=== PATIENT | female | born 1965 | race Caucasian/White ===

== ENCOUNTER 2017-03-25 19:00 | Emergency (ER) | payer BC, OTHER ==
[~2017-03-25] VITALS: Ht 177.8 cm; Wt 136.6 kg
[2017-03-25 19:04] VITALS: TEMP 36.6; Ht 177.8 cm; Wt 136.6 kg
[2017-03-25] MEDS ORDERED: ADENOSINE IV SOLN 3 MG/ML 2 ML VIAL ONE (19:26)
[2017-03-25] MEDS ORDERED: SODIUM CHLORIDE 0.9% 500ML 500 ML IV STA ×2 (19:27→20:43)
[2017-03-25] MEDS ORDERED: SODIUM CHLORIDE 0.9% 1000ML 1,000 ML IV STA (19:27)
[2017-03-25] MEDS ORDERED: METOPROLOL TARTRATE 1 MG/ML VIAL IV STA (19:27)
--- NOTE | 2017-03-25 19:42 | EMERGENCY ROOM VISIT NOTE ---
History Report prepared by Jeroym: Onur Barth Under the Supervision of: Dr. Frantz Quintana M.D. First contact with patient: 19:18 Chief Complaint: PALPITATIONS Stated Complaint: PALPS History of Present Illness The patient is a 51 year old female who presents to the Emergency Room with complaints of constant palpitations beginning 20 minutes ago. The patient states that she was on [place] way [place] the [place], driving, when she developed her palpitations. She reports that she drove to her work and did a standing EKG that showed SVT. The patient notes that she drove herself to the ED afterwards. She states that woke up with similar symptoms in the night several weeks ago. The patient reports that she went back to sleep, and when she woke up, the palpitations were gone. She notes that she has been under gross amounts of stress the past couple months, and she was placed on 150mg of Bupropion. The patient states that she has David thyroid disease, but denies heart or lung problems. She denies shortness of breath, chest pain, coughing, and congestion. The patient reports that she is prediabetic and is not receiving treatment. Source of History: patient Onset: 20 minutes ago Position: chest Quality: other (palpitations) Timing: constant Associated Symptoms: No cough, No chest pain, No SOB Note: Denies: congestion Review of Systems See HPI for pertinent positives & negatives. A total of 10 systems reviewed and were otherwise negative. Past Medical & Surgical Medical Problems: (1) David's thyroiditis (2) Sleep apnea Family History Patient reports no known family medical history. Social History Smoking Status: Current Every Day Smoker Marital Status: Housing Status: lives with significant other Occupation Status: employed Current/Historical Medications Scheduled Bupropion Hcl (Bupropion Hcl Xl), 150 MG PO HOLD Levothyroxine Sodium (Levothyroxine Sodium), 100 MCG PO DAILY Metoprolol Succinate (Toprol Xl), 1 TAB PO DAILY Scheduled PRN Acetaminophen (Tylenol), 1,000 MG PO Q6H PRN for Pain Allergies Coded Allergies: Doxycycline (Verified Adverse Reaction, Intermediate, Itchiness, 03/25/17) Physical Exam Vital Signs Date Time Temp Pulse Resp B/P (MAP) Pulse Ox O2 Delivery O2 Flow Rate FiO2 03/25/17 21:40 88 18 142/90 96 Room Air 03/25/17 21:18 87 18 131/78 96 Room Air 03/25/17 19:43 91 18 137/81 03/25/17 19:38 98 150/91 03/25/17 19:18 160 03/25/17 19:04 36.6 164 18 174/97 98 Room Air Physical Exam GENERAL: Patient is anxious and sometime. HEENT: No acute trauma, normocephalic atraumatic, mucous membranes moist, no nasal congestion, no scleral icterus. NECK: No stridor, no adenopathy, no meningismus, trachea is midline. LUNGS: Clear to auscultation bilaterally, no wheeze, no rhonchi, breath sounds equal. HEART: Tachycardic rate with a regular rhythm, no murmurs. ABDOMEN: Soft, nontender, bowel sounds positive, no hernias, no peritonitis. EXTREMITIES: No cyanosis or edema, full range of motion of all the joints without pain or difficulty, no signs for acute trauma. NEUROLOGIC: Oriented x 3, no acute motor or sensory deficits, no focal weakness. SKIN: No rash, no jaundice, no diaphoresis. Medical Decision & Procedures ER Provider Diagnostic Interpretation: X-ray results as stated below per interpretation by me and the radiologist: CHEST ONE VIEW PORTABLE CLINICAL HISTORY: EVALUATE ALTERED MENTAL STATUS/WEAKNESS dyspnea COMPARISON STUDY: No previous studies for comparison. FINDINGS: Mild cardia megaly. Mild prominence of the pulmonary vasculature. Diaphragms smooth. Calcific angles are sharp. IMPRESSION: Early congestive failure The above report was generated using voice recognition software. It may contain grammatical, syntax or spelling errors. Electronically signed by: Fabian Flores M.D. 03/25/2017 8:05 PM Dictated Date/Time: 03/25/2017 8:05 PM Laboratory Results 03/25/17 19:25 Red Blood Count 5.37, Mean Corpuscular Volume 86.4, Mean Corpuscular Hemoglobin 29.8, Mean Corpuscular Hemoglobin Concent 34.5, Mean Platelet Volume 9.8, Neutrophils (%) (Auto) 62.7, Lymphocytes (%) (Auto) 27.7, Monocytes (%) (Auto) 6.6, Eosinophils (%) (Auto) 2.0, Basophils (%) (Auto) 0.4, Neutrophils # (Auto) 12.50, Lymphocytes # (Auto) 5.53, Monocytes # (Auto) 1.31, Eosinophils # (Auto) 0.40, Basophils # (Auto) 0.08 03/25/17 19:25 Test 03/25/17 19:25 White Blood Count 19.93 K/uL (4.8-10.8) Red Blood Count 5.37 M/uL (4.2-5.4) Hemoglobin 16.0 g/dL (12.0-16.0) Hematocrit 46.4 % (37-47) Mean Corpuscular Volume 86.4 fL (80-100) Mean Corpuscular Hemoglobin 29.8 pg (25-34) Mean Corpuscular Hemoglobin Concent 34.5 g/dl (32-36) Platelet Count 392 K/uL (130-400) Mean Platelet Volume 9.8 fL (7.4-10.4) Neutrophils (%) (Auto) 62.7 % Lymphocytes (%) (Auto) 27.7 % Monocytes (%) (Auto) 6.6 % Eosinophils (%) (Auto) 2.0 % Basophils (%) (Auto) 0.4 % Neutrophils # (Auto) 12.50 K/uL (1.4-6.5) Lymphocytes # (Auto) 5.53 K/uL (1.2-3.4) Monocytes # (Auto) 1.31 K/uL (0.11-0.59) Eosinophils # (Auto) 0.40 K/uL (0-0.5) Basophils # (Auto) 0.08 K/uL (0-0.2) RDW Standard Deviation 47.0 fL (36.4-46.3) RDW Coefficient of Variation 14.8 % (11.5-14.5) Immature Granulocyte % (Auto) 0.6 % Immature Granulocyte # (Auto) 0.11 K/uL (0.00-0.02) Anion Gap 7.0 mmol/L (3-11) Est Creatinine Clear Calc Drug Dose 71.0 ml/min Estimated GFR () 49.9 Estimated GFR (Non- 43.1 BUN/Creatinine Ratio 15.6 (10-20) Calcium Level 9.3 mg/dl (8.5-10.1) Magnesium Level 2.1 mg/dl (1.8-2.4) Total Bilirubin 0.3 mg/dl (0.2-1) Aspartate Amino Transf (AST/SGOT) 11 U/L (15-37) Alanine Aminotransferase (ALT/SGPT) 30 U/L (12-78) Alkaline Phosphatase 101 U/L (45-117) Total Protein 8.3 gm/dl (6.4-8.2) Albumin 3.6 gm/dl (3.4-5.0) Globulin 4.7 gm/dl (2.5-4.0) Albumin/Globulin Ratio 0.8 (0.9-2) Thyroid Stimulating Hormone (TSH) 3.220 uIu/ml (0.300-4.500) Free Thyroxine 1.39 ng/dl (0.80-1.60) Laboratory results reviewed by me. Medications Administered Medications (Trade) Dose Ordered Sig/Chema Route Start Time Stop Time Status Last Admin Dose Admin Sodium Chloride 500 ml @ 999 mls/hr Q31M STAT IV 03/25/17 19:27 03/25/17 19:57 DC 03/25/17 19:37 999 MLS/HR Metoprolol Tartrate (Lopressor Iv) 5 mg NOW STAT IV 03/25/17 19:27 03/25/17 19:32 DC 03/25/17 19:38 5 MG Sodium Chloride 500 ml @ 999 mls/hr Q31M STAT IV 03/25/17 20:43 03/25/17 21:13 DC 03/25/17 21:01 999 MLS/HR Metoprolol Succinate (Toprol Xl Tab) 25 mg NOW STAT PO 03/25/17 22:02 03/25/17 22:04 DC 03/25/17 22:21 25 MG ECG Indication: palpitations Rate (beats per minute): 156 Rhythm: SVT Findings: nonspecific-ST abn (diffuse, likely rate related), no ectopy Change: Second EKG in the same visit: Normal sinus with a rate of 98, Mild nonspecific ST-change, no ectopy, no acute ischemic change. ED Course 1918: The patient was evaluated in room B11B. A complete history and physical exam was performed. 1926: Ordered Sodium Chloride 1000 ml @ 200 mls/hr IV, Metoprolol Tartrate 5mg IV, Sodium Chloride 500 ml @ 999 mls/hr IV 2033: I discussed the patient's case with Dr. Shankar, Cardiology. He suggested the patient be started on Metoprolol since this is her second episode. 2042: Ordered Sodium Chloride 500 ml @ 999 mls/hr IV 2138: I reevaluated the patient and discussed current exam findings. 2206: Reevaluated the patient. Discussed results and discharge instructions: she verbalized understanding and agreement. The patient is ready for discharge. Medical Decision The patient is a 51 year old female who presents to the ED with complaints of palpitations. Differential diagnoses considered include stress, electrolyte imbalance, medication reaction, atrial fibrillation, atrial flutter, SVT, thyroid disorder. There is a significant leukocytosis of 19,000, this could be consistent with the stress of her situation or possibly infection although she has had no infection type symptoms. There is no anemia. No significant electrolyte abnormality, kidney failure or hepatitis. The patient appears to be in a euthyroid state. EKG shows SVT with a rate in the 150s, no acute ischemic change. Chest x-ray does not show cardiomegaly. No pneumonia. The radiologist felt the film was consistent with possible CHF-the patient is not short of breath, her lungs are clear. The findings on film are likely consistent with her body habitus. The patient was aggressively managed. She was in SVT by EKG findings. I had her perform some vagal maneuvers and she did break to a sinus rhythm. Repeat EKG confirmed normal sinus rhythm, no acute ischemia. The patient received IV saline, she received IV Lopressor. I discussed her case with cardiology. She is being discharged on metoprolol and will be followed in the office. She can return here for worsening symptoms. 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 The metoprolol was given because this was very likely her second event in just a few weeks. She will follow for a repeat white blood cell count next week. Consults Time Called: 1931 Consulting Physician: Dr. Shankar, Cardiology Returned Call: [phone] I discussed the patient's case with Dr. Shankar, Cardiology. He suggested the patient be started on Metoprolol since this is her second episode. Impression Primary Impression: SVT (supraventricular tachycardia) Additional Impression: Leukocytosis Scribe Attestation The scribe's documentation has been prepared under my direction and personally reviewed by me in its entirety. I confirm that the note above accurately reflects all work, treatment, procedures, and medical decision making performed by me. Departure Information Dispostion Home / Self-Care Prescriptions Metoprolol Succinate (TOPROL XL) 25 Mg Tab 1 TAB PO DAILY for 30 Days, #30 TAB 1 Refill Prov: Frantz Quintana M.D. 03/25/17 Referrals Wei Diallo PA-C Forms HOME CARE DOCUMENTATION FORM, IMPORTANT VISIT INFORMATION Patient Instructions My [facility] Additional Instructions have a white blood cell count recheck next week--it was high today start metoprolol daily tomorrow am follow with your doctor for a cardiology referral return for return of symptoms Problem Qualifiers
[2017-03-25 19:47] LABS: HEMATOCRIT 46.4 % (37-47); MEAN CELL VOLUME 86.4 fL (80-100); MEAN CORPUSCULAR HEMOGLOBIN 29.8 pg (25-34); MEAN CORPUSCULAR HGB CONC 34.5 g/dl (32-36); MEAN PLATELET VOLUME 9.8 fL (7.4-10.4); PLATELET COUNT 392 K/uL (130-400); RED BLOOD COUNT 5.37 M/uL (4.2-5.4); WHITE BLOOD COUNT 19.93 K/uL (4.8-10.8)
[2017-03-25 20:06] LABS: BUN/CREATININE RATIO 15.6 (10-20); CALCIUM 9.3 mg/dl (8.5-10.1); CREATININE 1.4 mg/dl (0.60-1.20); MAGNESIUM 2.1 mg/dl (1.8-2.4); POTASSIUM 3.8 mmol/L (3.5-5.1)
--- NOTE | 2017-03-25 20:07 | DIAGNOSTIC IMAGING REPORT ---
CHEST ONE VIEW PORTABLE CLINICAL HISTORY: EVALUATE ALTERED MENTAL STATUS/WEAKNESS dyspnea COMPARISON STUDY: No previous studies for comparison. FINDINGS: Mild cardia megaly. Mild prominence of the pulmonary vasculature. Diaphragms smooth. Calcific angles are sharp. IMPRESSION: Early congestive failure The above report was generated using voice recognition software. It may contain grammatical, syntax or spelling errors. Electronically signed by: Fabian Flores M.D. 03/25/2017 8:05 PM Dictated Date/Time: 03/25/2017 8:05 PM
[2017-03-25 20:11] LABS: BASO % 0.4 %; BASO ABS # 0.08 K/uL (0-0.2); COMPLETE YES; IG% 0.6 %; LYMPH % 27.7 %; LYMPH ABS # 5.53 K/uL (1.2-3.4); MONO % 6.6 %; NEUT % 62.7 %
[2017-03-25 21:13] LABS: ALB/GLOB RATIO 0.8 (0.9-2)
[2017-03-25 21:36] LABS: THYROID STIMULATING HORMONE 3.22 uIu/ml (0.300-4.500)
[2017-03-25 21:40] VITALS: BP 142/90; PULSE 88; O2SAT 96
[2017-03-25] MEDS ORDERED: TYLOTC500 PO (21:47)
[2017-03-25] MEDS ORDERED: LEVO100T7 PO (21:47)
[2017-03-25] MEDS ORDERED: BUPR150T5 PO (21:49)
[2017-03-25] MEDS ORDERED: METOPROLOL SUCC 25MG EXT REL TAB PO STA (22:02)
[2017-03-25] MEDS ORDERED: METO1TAB31 PO (22:05)
== END 2017-03-25 22:22 | disposition home or self-care (01) ==
LOC: C.EDB 19:01
DX: I47.1 Supraventricular tachycardia (principal); D72.829 Elevated white blood cell count, unspecified; E06.3 Autoimmune thyroiditis; G47.30 Sleep apnea, unspecified; Z79.899 Other long term (current) drug therapy; F17.200 Nicotine dependence, unspecified, uncomplicated

== ENCOUNTER 2022-02-24 14:25 | Inpatient (IN) ==
[2022-02-24 16:20] LABS: Basophils # (auto) 0.07 K/uL (0-0.2); Basophils % (auto) 0.8 %; Eosinophils # (auto) 0.14 K/uL (0-0.50); Eosinophils % (auto) 1.7 %; Hematocrit (blood only) 35.1 % (34.1-44.9); Immature Granulocytes # (auto) 0.05 K/uL (0.00-0.02); Immature Granulocytes % (auto) 0.6 %; Lymphocytes # (auto) 1.95 K/uL (1.2-3.4); Lymphocytes % (auto) 23.3 %; Mean Corpuscular Hemoglobin 27.4 pg (25.0-34.0); Mean Corpuscular Hgb Conc 31.3 g/dL (32.0-36.0); Mean Corpuscular Volume 87.5 fL (80.0-100.0); Mean Platelet Volume 9.2 fL (9.4-12.3); Monocytes # (auto) 0.32 K/uL (0.24-0.82); Monocytes % (auto) 3.8 %; Neutrophils # (auto) 5.85 K/uL (1.4-6.5); Neutrophils % (auto) 69.8 %; Platelet Count 369 K/uL (130-400); RDW Coefficient of Variation 14.6 % (11.5-14.5); RDW Standard Deviation 46.8 fL (36.4-46.3); Red Blood Count 4.01 M/uL (3.93-5.22); White Blood Count 8.38 K/ul (4.8-10.8)
--- NOTE | 2022-02-24 16:36 | Emergency Department Note ---
Impression & Plan Atrial flutter with rapid ventricular response, Acute Lyme disease ED Provider Note INFORMANT: Patient ED PROVIDER(S): Keyur Dubose MD CHIEF COMPLAINT: Palpitations PLAN: Disposition: Admitted Condition: Good Outpatient prescription management: none Referral: None MEDICAL DECISION MAKING: Patient presented because of palpitations. Noted that she had shortness of breath however when the patient was asked to quantify she denies shortness of breath more of a feeling that she could not take a deep breath. She also noted intermittent joint and neurologic complaints. She had an episode of paroxysmal A. fib/flutter recently history of she had a fever and bull's-eye rash 3 to 4 weeks ago. ECG showed a flutter with RVR. Patient was treated with IV Cardizem x2. Rate control was achieved however she was still fluttering. Her CBC and chemistry panel were unremarkable. Lyme testing positive IgM and IgG. IV Rocephin 2 g was given. Patient was reassessed and updated. Further management in the hospital will be necessary. Consultation was made with Dr. Elliott Denny, [facility] hospitalist service. Triage Nursing notes reviewed and agree them. Vital Signs: reviewed and remarkable for tachycardia Differential diagnosis: Premature contractions, electrolyte abnormality, cardiac dysrhythmia, thyroid dysfunction, pulmonary embolism, infection, gastrointestinal, as well as other pathologies. Diagnostics interpreted by me: ECG: Twelve-lead ECG reveals atrial flutter with variable block at 121 bpm. Nonspecific interventricular conduction delay present nonspecific inferior and lateral T wave abnormality and ST segment changes. When compared to prior there is not significant change ST segments however the flutter has replaced sinus. Cardiac Monitoring: Cardiac monitoring ordered by me: The patient was placed on continuous cardiac monitoring and observed. It revealed atrial flutter at 87 bpm. Imaging studies: Chest x-ray. Findings: A chest x-ray was performed and revealed no pneumothorax, effusion, infiltrate, pulmonary edema, free air under the diaphragm, or wide mediastinum. Impression: No acute disease. HPI: The patient is a 56 year old female who presents to the Emergency Room with complaints of intermittent tachycardia. This started today and she noted her pulse was fast. The patient also notes the following associated symptoms, palpitations, intermittent numbness and tingling in fingers and lips over a month. Did note an ER visit a few weeks ago due to palpitations and was found to be in rapid a fib/flutter. Treated with cardizem and converted. Was advised against anticoagulation and aspirin. The patient has taken a full dose of metoprolol for relieving factors. Current pain is rated as o/10. Noted a bullseye rash a month ago. Pt denies LOC, headache, fevers, chills, diaphoresis, visual changes, neck pain, chest pain, , nausea, SOB, vomiting, abdominal pain, back pain, melena, hematochezia, urinary symptoms, numbness, weakness, lymphadenopathy, rash, or other complaints. ROS: See above HPI for pertinent positives & negatives. A total of 10 systems reviewed and were otherwise negative. PAST MEDICAL HISTORY:See Below , atrial flutter PAST SURGICAL HISTORY:See Below, FAMILY HISTORY:See Below SOCIAL HISTORY:See Below, quit smoking HOME MEDICATIONS:See Below ALLERGIES:See Below VITALS:See Below PHYSICAL EXAMINATION: GENERAL: Awake, alert, well-appearing, in no distress HENT: Normocephalic, atraumatic. Oropharynx unremarkable. EYES: Normal conjunctiva. Sclera non-icteric. NECK: Inspection normal. Non-tender. Supple. No nuchal rigidity. FROM. No masses. RESPIRATORY: Clear to auscultation. No wheezes. No rales. Normal respiratory effort. CARDIAC: Tachycardic rate. Irregular rhythm. No murmurs. No rubs. Extremities warm and well perfused. Pulses equal. No JVD. GI: Soft, non-distended. No tenderness to palpation. No rebound or guarding. No masses. RECTAL: Deferred. MUSCULOSKELETAL: Atraumatic. Chest examination reveals no tenderness. The back is symmetrical on inspection without obvious abnormality. There is no CVA tenderness to palpation. No joint edema. LOWER EXTREMITIES: Calves are equal size bilaterally and non-tender. No edema. No discoloration. NEURO: Normal sensorium. No sensory or motor deficits noted. SKIN: No rash or jaundice noted. CRITICAL CARE: I have personally spent greater than 35 minutes of critical care time in the direct management of this patient. This includes bedside care, interpretation of diagnostic studies, and testing, discussion with consultants, patient, and other required patient management activities. These minutes are in excess of all separately billable procedures. Keyur Dubose MD Past Med/Surg History Social History Smoking Status: Former smoker Tobacco Type: Cigarettes Preferred Language: [place] Citizen Feels Safe at Home: Yes Allergies Allergies Allergy/AdvReac Type Severity Reaction Status Date / Time doxycycline AdvReac Intermediate Itchiness Verified 02/24/22 19:14 egg AdvReac nausea & Verified 02/24/22 19:16 vomiting Raw tomatoes Allergy itchy Uncoded 02/24/22 19:16 Home Meds Home Medications Medication Instructions Recorded Confirmed ACETAMINOPHEN (TYLENOL) 1,000 mg PO Q6H PRN Pain #0 tabs 03/25/17 BUPROPION HCL (BUPROPION HCL XL) 150 mg PO HOLD #0 tabs 03/25/17 LEVOTHYROXINE SODIUM 100 mcg PO DAILY #0 tabs 03/25/17 Previous Rx's Medication Instructions Recorded METOPROLOL SUCCINATE (TOPROL XL) 1 tab PO DAILY 30 days #30 tabs 03/25/17 Results & Data (ED) Vital Signs Vital Signs - 24 hr 02/24/22 14:30 02/24/22 16:13 02/24/22 17:05 Temperature 36.9 C Temperature Source Temporal Artery Scan Pulse Rate 120 H Pulse Rate [Apical] Pulse Rhythm [Apical] Pulse Strength [Apical] Respiratory Rate 18 Respiratory Effort / Characteristics Respiratory Depth Respiratory Pattern Blood Pressure 150/90 H Blood Pressure [Left Arm] Blood Pressure Mean 110 Blood Pressure Mean [Left Arm] Blood Pressure Position [Left Arm] Pulse Oximetry 96 99 Oxygen Delivery Method Room Air Room Air Sepsis Recent Fever Within 48 Hours No Sepsis New/Unexplained Change in Mental Status No Sepsis Action Taken by Nursing No Action Required 02/24/22 17:05 02/24/22 17:47 02/24/22 18:18 Temperature Temperature Source Pulse Rate Pulse Rate [Apical] 102 H 115 H 76 Pulse Rhythm [Apical] Regular Regular Regular Pulse Strength [Apical] Normal Normal Normal Respiratory Rate 21 17 18 Respiratory Effort / Characteristics Non-Labored Non-Labored Non-Labored Respiratory Depth Normal Normal Normal Respiratory Pattern Regular Regular Blood Pressure Blood Pressure [Left Arm] 121/71 134/79 120/73 Blood Pressure Mean Blood Pressure Mean [Left Arm] 87 97 88 Blood Pressure Position [Left Arm] Lying Lying Pulse Oximetry 97 97 97 Oxygen Delivery Method Room Air Room Air Room Air Sepsis Recent Fever Within 48 Hours Sepsis New/Unexplained Change in Mental Status Sepsis Action Taken by Nursing Laboratory Data Result diagrams: 02/24/22 16:10 08/10/22 16:10 Lab Results 02/24/22 02/24/22 02/24/22 Range/Units 16:10 16:10 16:10 WBC 8.38 (4.8-10.8) K/ul RBC 4.01 (3.93-5.22) M/uL Hgb 11.0 L (12.0-16.0) g/dl Hct 35.1 (34.1-44.9) % MCV 87.5 (80.0-100.0) fL MCH 27.4 (25.0-34.0) pg MCHC 31.3 L (32.0-36.0) g/dL RDW Std Deviation 46.8 H (36.4-46.3) fL RDW Coeff of Kee 14.6 H (11.5-14.5) % Plt Count 369 (130-400) K/uL MPV 9.2 L (9.4-12.3) fL Immature Gran % (Auto) 0.6 % Neut % (Auto) 69.8 % Lymph % (Auto) 23.3 % Rogers % (Auto) 3.8 % Eos % (Auto) 1.7 % Baso % (Auto) 0.8 % Neut # (Auto) 5.85 (1.4-6.5) K/uL Lymph # (Auto) 1.95 (1.2-3.4) K/uL Rogers # (Auto) 0.32 (0.24-0.82) K/uL Eos # (Auto) 0.14 (0-0.50) K/uL Baso # (Auto) 0.07 (0-0.2) K/uL Immature Gran # (Auto) 0.05 H (0.00-0.02) K/uL ESR (0-30) mm/hr Sodium 137 (136-145) mmol/L Potassium 3.9 (3.5-5.1) mmol/L Chloride 102 (98-107) mmol/L Carbon Dioxide 29 (21-32) mmol/L Anion Gap 6 (3-11) BUN 22 (6-23) mg/dl Creatinine 1.12 (0.6-1.2) mg/dl Est Cr Clr Drug Dosing 83.3 ml/min Est GFR ( Amer) 63.1 ml/min Est GFR (Non-Af Amer) 54.5 ml/min BUN/Creatinine Ratio 19.6 (10-20) Glucose 144 H (70-99(Fasting)) mg/dl Calcium 9.2 (8.5-10.1) mg/dl Total Bilirubin 0.3 (0.2-1.0) mg/dl AST 19 (13-39) U/L ALT 25 (7-52) U/L Alkaline Phosphatase 65 (34-104) U/L C-Reactive Protein (0-0.5) mg/dl Total Protein 7.4 (6.0-8.3) gm/dl Albumin 3.7 (3.4-5.0) gm/dl Globulin 3.7 (2.5-4.0) gm/dl Albumin/Globulin Ratio 1.0 (0.9-2) TSH (0.300-4.500) uIu/ml Free T4 (0.61-1.60) ng/dl Lyme Disease IgG Ab Positive A (Negative) Lyme Disease IgM Ab Positive A (Negative) 02/24/22 02/24/22 02/24/22 Range/Units 16:10 16:10 16:10 WBC (4.8-10.8) K/ul RBC (3.93-5.22) M/uL Hgb (12.0-16.0) g/dl Hct (34.1-44.9) % MCV (80.0-100.0) fL MCH (25.0-34.0) pg MCHC (32.0-36.0) g/dL RDW Std Deviation (36.4-46.3) fL RDW Coeff of Kee (11.5-14.5) % Plt Count (130-400) K/uL MPV (9.4-12.3) fL Immature Gran % (Auto) % Neut % (Auto) % Lymph % (Auto) % Rogers % (Auto) % Eos % (Auto) % Baso % (Auto) % Neut # (Auto) (1.4-6.5) K/uL Lymph # (Auto) (1.2-3.4) K/uL Rogers # (Auto) (0.24-0.82) K/uL Eos # (Auto) (0-0.50) K/uL Baso # (Auto) (0-0.2) K/uL Immature Gran # (Auto) (0.00-0.02) K/uL ESR 77 H (0-30) mm/hr Sodium (136-145) mmol/L Potassium (3.5-5.1) mmol/L Chloride (98-107) mmol/L Carbon Dioxide (21-32) mmol/L Anion Gap (3-11) BUN (6-23) mg/dl Creatinine (0.6-1.2) mg/dl Est Cr Clr Drug Dosing ml/min Est GFR ( Amer) ml/min Est GFR (Non-Af Amer) ml/min BUN/Creatinine Ratio (10-20) Glucose (70-99(Fasting)) mg/dl Calcium (8.5-10.1) mg/dl Total Bilirubin (0.2-1.0) mg/dl AST (13-39) U/L ALT (7-52) U/L Alkaline Phosphatase (34-104) U/L C-Reactive Protein 7.05 H (0-0.5) mg/dl Total Protein (6.0-8.3) gm/dl Albumin (3.4-5.0) gm/dl Globulin (2.5-4.0) gm/dl Albumin/Globulin Ratio (0.9-2) TSH 5.805 H (0.300-4.500) uIu/ml Free T4 1.11 (0.61-1.60) ng/dl Lyme Disease IgG Ab (Negative) Lyme Disease IgM Ab (Negative) Administered Medications Discontinued Medications Diltiazem HCl (Diltiazem Hcl 5 Mg/Ml 5 Ml Vial) 10 mg IV NOW STA Stop: 02/24/22 16:43 Last Admin: 02/24/22 16:59 Dose: 10 mg Documented By: BIBI Co-signed By: SR Diltiazem HCl (Diltiazem Hcl 5 Mg/Ml 5 Ml Vial) 10 mg IV NOW STA Stop: 02/24/22 17:43 Last Admin: 02/24/22 17:48 Dose: 10 mg Documented By: BIBI Co-signed By: Discharge Plan Visit Data Chief Complaint: Neuro Symptoms/Deficit Stated Complaint: HARD TO BREATHE, NEUROLOGICAL SYMPTOMS ED Provider: Keyur Dubose Discharge Problem: Atrial flutter with rapid ventricular response, Acute Lyme disease Forms Stand Alone Forms: My [facility] Referrals Referrals: Wei Diallo PA-C [Outside Practitioners] -
[2022-02-24 16:40] LABS: Albumin Level 3.7 gm/dl (3.4-5.0); BUN Creatinine Ratio 19.6 (10-20); Bilirubin,Total 0.3 mg/dl (0.2-1.0); Calcium 9.2 mg/dl (8.5-10.1); Creatinine Clr Calc Pharmacy 83.3 ml/min; Est GFR (African American) 63.1 ml/min; Est GFR (Non-African American) 54.5 ml/min; Globulin 3.7 gm/dl (2.5-4.0); Potassium 3.9 mmol/L (3.5-5.1); Total Protein 7.4 gm/dl (6.0-8.3)
[2022-02-24] MEDS ORDERED: dilTIAZem HCl 5 MG/ML 5 ML VIAL IV STA ×2 (16:42→17:42)
[2022-02-24 17:09] LABS: Thyroid Stimulating Hormone 5.805 uIu/ml (0.300-4.500)
[2022-02-24 17:48] LABS: T4 Free Thyroxine 1.11 ng/dl (0.61-1.60)
[2022-02-24 18:47] LABS: Lyme Ab IgG w/WB Rflx Positive (Negative); Lyme Ab IgM w/WB Rflx Positive (Negative)
[2022-02-24] MEDS ORDERED: cefTRIAXone SODIUM 2,000 MG/70 ML BAG IV STA (18:50)
[2022-02-24] MEDS ORDERED: POTASSIUM CHLORIDE CRTAB 20 MEQ TABCR PO STA (19:16)
--- NOTE | 2022-02-24 20:22 | History & Physical Report ---
Date of Service February 24, 2022 Assessment & Plan (1) Atrial flutter with rapid ventricular response: Plan: hx PAF/PSVT Possible cardiac Lyme Anxiety contributory Possible INSERTER OPERATOR Lyme DM2 diet-controlled, suboptimal control as of recent hemoglobin A1c of 8.19 January 2022 hyperlipidemia, currently not on medications as per patient preference hypothyroidism, TSH slight elevated New onset anemia, patient denies overt source of bleed CAMERON on CPAP past tobacco abuse PCU Titrate home beta-antony carefully in light of bradycardic episodes at home TTE, cardiology consult Re: New onset atrial flutter IV heparin for thromboembolic prophylaxis Ceftriaxone, ID consult for disseminated Lyme (cardiac and INSERTER OPERATOR manifestations) Anxiolytic as needed Basal insulin, ISS BG goal 1 10-1 40, carb count coverage DVT prophylaxis IV heparin Full code Patient requesting to be discharged tomorrow if possible due to important work commitment on 02/26/2022. Text document was generated using [employer] voice recognition software. It may contain grammatical or spelling errors. Kindly contact undersigned for clarification of any documentation item in question. History of Present Illness Chief Complaint: Breathing not usual Primary Care Provider: Trina Resendiz MD History obtained from patient and records. Medical history significant for PAF, PSVT, DM2 diet-controlled, hyperlipidemia, hypothyroidism, CAMERON on CPAP, past tobacco abuse. 6 weeks ago patient noted a bull's-eye lesion on the left arm with fever. Possible tick bite. Outpatient Lyme screen negative. Outpatient Keflex Rx for LUE cellulitis from PCPs office. Patient later on noted transient truncal lesions. 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 Persistent fatigue last 6 weeks. 2 weeks ago, patient noted palpitations. Patient consulted [facility] ER. A. fib resolved with diltiazem as per documentation. Patient discharged on Toprol-XL 25 mg daily. Heart rate as low as 40 at home from time to time. PCP decreased Toprol-XL dose to 12.5 mg daily on follow-up visit. Patient later on noted transient neurologic symptoms over the last few weeks. Lip numbness, tingling finger numbness/sensation, RLE numbness compared to LLE as per patient. No headache symptoms. Patient breathing not usual at work today. Denies chest pain. Not actually short of breath as per patient. Leg swelling actually better than a few weeks ago. No unusual cough symptoms. Patient noted to be in atrial flutter upon arrival at the ER. IV Cardizem administered at the ER. Ceftriaxone administered for Lyme disease. 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 Allergies Allergy/AdvReac Type Severity Reaction Status Date / Time tomato Allergy itching Verified 02/24/22 22:17 doxycycline AdvReac Intermediate Itchiness Verified 02/24/22 19:14 egg AdvReac nausea & Verified 02/24/22 19:16 vomiting Home Medications Medication Instructions Recorded Confirmed Type Magnesium Malate Tab 425 mg PO DAILY 02/24/22 02/24/22 History acetaminophen 500 mg tablet 500 - 1,000 mg PO Q6H PRN Pain 02/24/22 02/24/22 History (Tylenol Extra Strength) cholecalciferol (vitamin D3) 125 125 mcg PO DAILY 02/24/22 02/24/22 History mcg (5,000 unit) tablet (Vitamin D3) levothyroxine 137 mcg tablet 137 mcg PO DAILY 02/24/22 02/24/22 History (Euthyrox) metoprolol succinate 25 mg 25 mg PO DAILY 02/24/22 02/24/22 History tablet,extended release 24 hr vitamin B complex 1 tab PO DAILY 02/24/22 02/24/22 History Past Med/Surg History Social History Smoking Status: Former smoker Tobacco Type: Cigarettes Smoking End Date: January 29; Hx Alcohol Use: Yes Hx Substance Use: No Preferred Language: Irish Communication Ability: Effective Newswriter Required: No Beliefs That Will Affect Care: None Current Living Situation: Family Feels Safe at Home: No Assistive Devices: CPAP and Glasses Review of Systems Review of Systems: As per HPI, all other systems reviewed and negative Physical Exam Physical Exam: GENERAL: Comfortable, anxious, morbidly obese, tearful, no respiratory distress SKIN: Normal color, warm HEENT: [place] palpebral conjunctivae, no ptosis, moist buccal mucosa NECK : Supple, short neck, no tenderness CHEST : CTA, no tenderness HEART : Tachycardic, no obvious murmurs ABDOMEN: Some distention, nontender EXTREMITIES : Minimal LE swelling, no LE tenderness, no other conspicuous deformities noted NEUROLOGIC : Coherent, no facial asymmetry, no other gross focality Results & Data Results & Data ([facility]) Vital Signs (Past 12 Hours) Vital Signs Temp Pulse Pulse Resp BP BP Pulse Ox 02/24/22 18:18 76 18 120/73 97 02/24/22 17:47 115 H 17 134/79 97 02/24/22 17:05 102 H 21 121/71 97 02/24/22 17:05 99 02/24/22 16:13 02/24/22 14:30 36.9 C 120 H 18 150/90 H 96 O2 Del Method 02/24/22 18:18 Room Air 02/24/22 17:47 Room Air 02/24/22 17:05 Room Air 02/24/22 17:05 Room Air 02/24/22 16:13 Room Air 02/24/22 14:30 Laboratory Results Laboratory Results WBC 8.38 K/ul (4.8-10.8) 02/24/22 16:10 RBC 4.01 M/uL (3.93-5.22) 02/24/22 16:10 Hgb 11.0 g/dl (12.0-16.0) L 02/24/22 16:10 Hct 35.1 % (34.1-44.9) 02/24/22 16:10 MCV 87.5 fL (80.0-100.0) 02/24/22 16:10 MCH 27.4 pg (25.0-34.0) 02/24/22 16:10 MCHC 31.3 g/dL (32.0-36.0) L 02/24/22 16:10 RDW Std Deviation 46.8 fL (36.4-46.3) H 02/24/22 16:10 RDW Coeff of Kee 14.6 % (11.5-14.5) H 02/24/22 16:10 Plt Count 369 K/uL (130-400) 02/24/22 16:10 MPV 9.2 fL (9.4-12.3) L 02/24/22 16:10 Immature Gran % (Auto) 0.6 % 02/24/22 16:10 Neut % (Auto) 69.8 % 02/24/22 16:10 Lymph % (Auto) 23.3 % 02/24/22 16:10 Kay % (Auto) 3.8 % 02/24/22 16:10 Eos % (Auto) 1.7 % 02/24/22 16:10 Baso % (Auto) 0.8 % 02/24/22 16:10 Neut # (Auto) 5.85 K/uL (1.4-6.5) 02/24/22 16:10 Lymph # (Auto) 1.95 K/uL (1.2-3.4) 02/24/22 16:10 Kay # (Auto) 0.32 K/uL (0.24-0.82) 02/24/22 16:10 Eos # (Auto) 0.14 K/uL (0-0.50) 02/24/22 16:10 Baso # (Auto) 0.07 K/uL (0-0.2) 02/24/22 16:10 Immature Gran # (Auto) 0.05 K/uL (0.00-0.02) H 02/24/22 16:10 ESR 77 mm/hr (0-30) H 02/24/22 16:10 Sodium 137 mmol/L (136-145) 02/24/22 16:10 Potassium 3.9 mmol/L (3.5-5.1) 02/24/22 16:10 Chloride 102 mmol/L (98-107) 02/24/22 16:10 Carbon Dioxide 29 mmol/L (21-32) 02/24/22 16:10 Anion Gap 6 (3-11) 02/24/22 16:10 BUN 22 mg/dl (6-23) 02/24/22 16:10 Creatinine 1.12 mg/dl (0.6-1.2) 02/24/22 16:10 Est Cr Clr Drug Dosing 83.3 ml/min 02/24/22 16:10 Est GFR ( Amer) 63.1 ml/min 02/24/22 16:10 Est GFR (Non-Af Amer) 54.5 ml/min 02/24/22 16:10 BUN/Creatinine Ratio 19.6 (10-20) 02/24/22 16:10 Glucose 144 mg/dl (70-99(Fasting)) H 02/24/22 16:10 Calcium 9.2 mg/dl (8.5-10.1) 02/24/22 16:10 Total Bilirubin 0.3 mg/dl (0.2-1.0) 02/24/22 16:10 AST 19 U/L (13-39) 02/24/22 16:10 ALT 25 U/L (7-52) 02/24/22 16:10 Alkaline Phosphatase 65 U/L (34-104) 02/24/22 16:10 C-Reactive Protein 7.05 mg/dl (0-0.5) H 02/24/22 16:10 Total Protein 7.4 gm/dl (6.0-8.3) 02/24/22 16:10 Albumin 3.7 gm/dl (3.4-5.0) 02/24/22 16:10 Globulin 3.7 gm/dl (2.5-4.0) 02/24/22 16:10 Albumin/Globulin Ratio 1.0 (0.9-2) 02/24/22 16:10 TSH 5.805 uIu/ml (0.300-4.500) H 02/24/22 16:10 Free T4 1.11 ng/dl (0.61-1.60) 02/24/22 16:10 Lyme Disease IgG Ab Positive (Negative) A 02/24/22 16:10 Lyme Disease IgM Ab Positive (Negative) A 02/24/22 16:10 SARS-CoV-2, RNA, NAAT NEGATIVE (NEGATIVE) 02/24/22 19:[address] head initial read: No intracranial hemorrhage, mass-effect or midline shift. There is no abnormal extra axial fluid collection. No evidence of acute infarct. Mild periventricular white matter hypodensities are most consistent with chronic microangiopathy. The visualized paranasal sinuses and mastoid air cells are clear. No fracture. EKG as per my interpretation: Rate 120, atrial flutter, normal axis, T wave abnormalities lateral leads
[2022-02-24 20:31] LABS: Partial Thromboplastin Time 26.8 Seconds (21.0-31.0)
[2022-02-24 20:40] LABS: Magnesium 2.1 mg/dl (1.7-2.4)
[2022-02-24] MEDS ORDERED: METOPROLOL SUCC 25MG EXT REL TAB PO STA (20:45)
[2022-02-24 20:47] LABS: Troponin I High Sensitivity 219.3 pg/ml (0-14)
[2022-02-24] MEDS ORDERED: Heparin IV Adult Wt-Based Low-Dose *NO* Bolus Protocol IV SCH (21:30)
[2022-02-24] MEDS ORDERED: GLUCOSE 10 TAB/TUBE PO PRN (22:08)
[2022-02-24] MEDS ORDERED: GLUCOSE 40% GEL 15 GM TUBE PO PRN (22:08)
[2022-02-24] MEDS ORDERED: ACETAMINOPHEN 325 MG TAB PO PRN (22:08)
[2022-02-24] MEDS ORDERED: DEXTROSE 50% 50 ML SYRINGE IV PRN (22:08)
[2022-02-24] MEDS ORDERED: CARBOHYDRATES FOR HYPOGLYCEMIA PO PRN (22:08)
[2022-02-24] MEDS ORDERED: traMADol HCL 50 MG TABLET PO PRN (22:08)
[2022-02-24] MEDS ORDERED: GLUCAGON FOR INJ 1 MG VIAL SQ PRN (22:08)
[2022-02-24] MEDS ORDERED: PROMETHAZINE HCL 12.5 MG in SODIUM CHLORIDE 0.9% 50 ML IV PRN (22:08)
[2022-02-24] MEDS ORDERED: LORazepam 0.5 MG TAB PO PRN (22:08)
[2022-02-24] MEDS: INSULIN ASPART PER UNIT SC SCH (22:45)
[2022-02-24] MEDS: LANTUS PER UNIT CHARGE SQ SCH (22:53)
[2022-02-24] MEDS: HEPARIN SODIUM/DEXTROSE 25,000 UNITS/500 ML BAG IV SCH (22:54)
[2022-02-25 05:15] LABS: Basophils # (auto) 0.08 K/uL (0-0.2); Basophils % (auto) 0.9 %; Eosinophils # (auto) 0.16 K/uL (0-0.50); Eosinophils % (auto) 1.7 %; Hematocrit (blood only) 37.7 % (34.1-44.9); Hemoglobin 11.6 g/dl (12.0-16.0); Immature Granulocytes # (auto) 0.05 K/uL (0.00-0.02); Immature Granulocytes % (auto) 0.5 %; Lymphocytes # (auto) 2.51 K/uL (1.2-3.4); Lymphocytes % (auto) 27.2 %; Mean Corpuscular Hemoglobin 26.9 pg (25.0-34.0); Mean Corpuscular Hgb Conc 30.8 g/dL (32.0-36.0); Mean Corpuscular Volume 87.3 fL (80.0-100.0); Mean Platelet Volume 9.4 fL (9.4-12.3); Monocytes # (auto) 0.35 K/uL (0.24-0.82); Monocytes % (auto) 3.8 %; Neutrophils # (auto) 6.09 K/uL (1.4-6.5); Neutrophils % (auto) 65.9 %; Platelet Count 402 K/uL (130-400); RDW Coefficient of Variation 14.5 % (11.5-14.5); RDW Standard Deviation 46.5 fL (36.4-46.3); Red Blood Count 4.32 M/uL (3.93-5.22); Reticulocyte % 1.9 % (0.5-2.0); Reticulocytes # 0.08 10^6/uL (0.02-0.10); White Blood Count 9.24 K/ul (4.8-10.8)
[2022-02-25 05:30] LABS: Partial Thromboplastin Time 26.8 Seconds (21.0-31.0)
[2022-02-25 05:42] LABS: Creatinine Clr Calc Pharmacy 113.7 ml/min; Est GFR (African American) 92.1 ml/min; Est GFR (Non-African American) 79.4 ml/min; Magnesium 2.1 mg/dl (1.7-2.4); Potassium 4.2 mmol/L (3.5-5.1)
[2022-02-25 06:05] LABS: Ferritin 42.4 ng/ml (8-388)
[2022-02-25 06:20] LABS: Folate (Folic Acid) 11.45 ng/ml (>5.38)
[2022-02-25] MEDS ORDERED: HEPARIN SOD (PORCINE) 1000 UNIT/ML ONE (06:21)
--- NOTE | 2022-02-25 08:22 | CT Scan Report ---
CT OF THE HEAD WITHOUT CONTRAST CLINICAL HISTORY: Numbness. COMPARISON STUDY: No previous studies for comparison. CT DOSE: 537.48 mGy.cm TECHNIQUE: Helical axial images of the head were obtained without IV contrast. Automated exposure con trol was utilized for the study. A dose lowering technique was utilized adhering to the principles o f ALARA. FINDINGS: No acute intracranial hemorrhage, midline shift or mass effect is present. The ventricular system is unremarkable. The basal cisterns are patent. No extra-axial collections are present. There are no findings to suggest acute dural sinus thrombosis or acute territorial infarct. No significant calvarial abnormalities are present. Visualized portions of the sinuses and mastoid air cells are cielo ar. IMPRESSION: No acute intracranial findings. ACT 112: Negative or not required by law. Electronically signed by: Dakota Brown M.D. 02/25/2022 8:20 AM
[2022-02-25] MEDS: INSULIN ASPART PER UNIT SC SCH ×4 (08:52→20:42)
[2022-02-25] MEDS ORDERED: METOPROLOL SUCC 25MG EXT REL TAB PO SCH (09:00)
[2022-02-25] MEDS ORDERED: MAGNESIUM MALATE PO SCH (09:00)
[2022-02-25] MEDS ORDERED: VITAMIN B COMPLEX TAB PO SCH (09:00)
--- NOTE | 2022-02-25 09:41 | Hospitalist Progress Note ---
Date of Service February 25, 2022 Assessment & Plan (1) Atrial flutter with rapid ventricular response: Plan: Recently seen at outpatient ER with this as a new finding. Placed on metoprolol which has been continued. Cont heparin drip with plans to transition to NOAC. Normal recent TSH. Possible Lyme infection contributing? (2) Elevated troponin: Plan: Echo without abnormal wall motion and normal V function. No concern for ACS and she is doing well. (3) Lyme disease: Plan: Ceftriaxone, ID consult for disseminated Lyme (cardiac and MANHOLE STRIPPER manifestations). Unable to tolerate doxycycline in the past. Plan DM2 diet-controlled, suboptimal control as of recent hemoglobin A1c of 8.19 January 2022 hyperlipidemia, currently not on medications as per patient preference hypothyroidism, TSH slight elevated, stable. Cont synthroid at home dose New onset anemia, patient denies overt source of bleed, had recently quit smoking two months ago. Previously had some elevated H/H likely related to smoking. CAMERON on CPAP past tobacco abuse Heparin for DVT proph Full Code Dispo-pending improvement in heart rate and antibiotic recommendations with stable improvement in clinical symptoms. To home at discharge. DO Saundra Correa Hospitalist Admission and Anticipated Discharge Date Admission Date: February 24, 2022 Subjective 56 yo F presents with palpitations and found to be again in atrial flutter with rapid ventricular response. Treated with diltiazem with slowing of rate. Placed on Toprol XL 50mg PO BID and heparin for stroke prophylaxis. 6 weeks ago patient noted a bull's-eye lesion on the left arm with fever. Possible tick bite. Outpatient Lyme screen negative. Outpatient Keflex Rx for LUE cellulitis from PCPs office. Patient later on noted transient truncal lesions. 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 Persistent fatigue last 6 weeks. 2 weeks ago, patient noted palpitations. Patient consulted [facility] ER. A. fib resolved with diltiazem as per documentation. Patient discharged on Toprol-XL 25 mg daily. Heart rate as low as 40 at home from time to time. PCP decreased Toprol-XL dose to 12.5 mg daily on follow-up visit. Patient later on noted transient neurologic symptoms over the last few weeks. Lip numbness, tingling finger numbness/sensation, RLE numbness compared to LLE as per patient. No headache symptoms. Patient breathing not usual at work today. Denies chest pain. Not actually short of breath as per patient. Leg swelling actually better than a few weeks ago. No unusual cough symptoms. Patient noted to be in atrial flutter upon arrival at the ER. IV Cardizem administered at the ER. Ceftriaxone administered for Lyme disease. This morning she is feeling less neurologic symptoms and is doing better overall. She is frustrated with the delay in diagnosis but is otherwise doing well Review of Systems Review of Systems: all systems were reviewed and negative except as indicated above. Physical Exam Physical Exam: CONSTITUTIONAL: WNWD, vitals as above, generally well- appearing, NAD EYES: normal conjunctivae, no scleral icterus ENT: external ear and nose normal, MMM NECK: trachea midline RESPIRATORY: clear to auscultation bilaterally, no crackles, rales or wheezes, normal respiratory effort CARDIOVASCULAR: irregular rate and irregular rhythm, S1 and 2 heard without mu rmurs, gallops or rubs, no JVD, no peripheral edema CHEST: inspection of chest was normal GASTROINTESTINAL: soft, nontender, ND, no guarding MUSCULOSKELETAL: strength 5/5 throughout, head is normocephalic and atraumatic, neck supple, normal palpation of chest wall without tenderness SKIN: warm and dry NEUROLOGIC: CN 2-12 grossly intact, no sensory deficit, normal cognition, normal speech, no tremor PSYCHIATRIC: alert cooperative and oriented to person, place and time. Euthymic mood, makes good eye contact, language grossly intact, recent and remote memory grossly intact. Results & Data Results & Data ([facility]) Vital Signs (Past 12 Hours) Vital Signs Temp Pulse Pulse Resp BP BP Pulse Ox 02/25/22 08:32 36.9 C 103 H 16 132/101 H 97 02/25/22 07:13 02/25/22 07:13 36.9 C 117 H 20 129/84 97 02/25/22 04:27 116 H 14 93 02/25/22 03:30 117 H 13 93 02/25/22 03:20 94 H 16 94 02/25/22 03:10 108 H 14 94 02/25/22 03:00 108 H 21 94 02/25/22 02:50 108 H 16 94 02/25/22 02:40 108 H 16 94 02/25/22 02:30 117 H 15 93 02/25/22 02:20 117 H 18 94 02/25/22 02:10 116 H 22 100 02/25/22 02:00 117 H 13 93 02/25/22 01:59 18 02/25/22 01:50 117 H 27 H 95 02/25/22 01:40 93 H 27 H 96 02/25/22 01:30 100 H 24 96 02/25/22 01:20 108 H 23 96 02/25/22 01:10 108 H 3 L 95 02/25/22 01:00 117 H 6 L 95 02/25/22 00:50 117 H 10 L 94 02/25/22 00:40 108 H 24 95 02/25/22 00:30 118 H 25 H 95 02/25/22 00:20 108 H 30 H 95 02/25/22 00:10 119 H 11 L 02/25/22 00:00 119 H 14 02/24/22 23:50 108 H 6 L 02/24/22 23:40 110 H 14 02/24/22 23:30 120 H 20 02/24/22 23:20 124 H 16 02/24/22 23:14 124 H 15 02/24/22 22:50 119 H 18 97 02/24/22 22:40 118 H 19 95 02/24/22 22:30 118 H 22 95 02/24/22 22:30 125/75 02/24/22 22:20 119 H 16 97 02/24/22 22:10 120 H 21 97 02/24/22 22:00 111 H 25 H 02/24/22 22:00 139/84 02/24/22 21:50 121 H 13 99 02/24/22 21:40 121 H 16 02/24/22 22:08 Pulse Ox O2 Del Method O2 Del Method FiO2 02/25/22 08:32 Room Air 02/25/22 07:13 Room Air 02/25/22 07:13 02/25/22 04:27 21 02/25/22 03:30 02/25/22 03:20 02/25/22 03:10 02/25/22 03:00 02/25/22 02:50 02/25/22 02:40 02/25/22 02:30 02/25/22 02:20 02/25/22 02:10 02/25/22 02:00 02/25/22 01:59 Nasal CPAP 02/25/22 01:50 02/25/22 01:40 02/25/22 01:30 02/25/22 01:20 02/25/22 01:10 02/25/22 01:00 02/25/22 00:50 02/25/22 00:40 02/25/22 00:30 02/25/22 00:20 02/25/22 00:10 02/25/22 00:00 02/24/22 23:50 02/24/22 23:40 02/24/22 23:30 02/24/22 23:20 02/24/22 23:14 02/24/22 22:50 02/24/22 22:40 02/24/22 22:30 02/24/22 22:30 02/24/22 22:20 02/24/22 22:10 02/24/22 22:00 02/24/22 22:00 02/24/22 21:50 02/24/22 21:40 02/24/22 22:08 97 Room Air Laboratory Results Short CBC 02/25/22 Range/Units 04:42 WBC 9.24 (4.8-10.8) K/ul Hgb 11.6 L (12.0-16.0) g/dl Hct 37.7 (34.1-44.9) % Plt Count 402 H (130-400) K/uL BMP 02/25/22 04:42 Sodium 137 Potassium 4.2 Chloride 103 Carbon Dioxide 27 BUN 18 Creatinine 0.82 D Glucose 149 H Calcium 9.0 Diagnostic Findings Chest X-Ray 02/25/22 10:48 XR chest 1V portable CLINICAL HISTORY: sob. COMPARISON STUDY: 03/25/2017 TECHNIQUE: 1 view of the chest FINDINGS: Single frontal view of the chest demonstrates the heart size to be at the upper limits of normal to mildly enlarged. The lungs are clear of alveolar opacities. There is no evidence for pleural effusion. There is no evidence for vascular congestion. There is no acute osseous pathology. IMPRESSION: 1. No acute cardiopulmonary disease. ACT 112: Negative or not required by law. Electronically signed by: Yazan Pizarro M.D. 02/25/2022 1:05 PM Medications Administered Current Inpatient Medications Acetaminophen (Acetaminophen 325 Mg Tab) 650 mg PO Q4H PRN PRN Reason: Pain or Fever Stop: 03/26/22 22:07 Dextrose (Dextrose 50% 50 Ml Syringe) 25 - 50 ml IV UD PRN; Protocol PRN Reason: Hypoglycemia Protocol Stop: 03/26/22 22:07 Glucagon (Glucagon For Inj 1 Mg Vial) 1 mg SQ UD PRN; Protocol PRN Reason: Hypoglycemia Protocol Stop: 03/26/22 22:07 Glucose (Glucose 40% Gel 15 Gm Tube) 15 - 30 gm PO UD PRN; Protocol PRN Reason: Hypoglycemia Protocol Stop: 03/26/22 22:07 Glucose (Glucose 10 Tab/Tube) 4 - 8 tab PO UD PRN; Protocol PRN Reason: Hypoglycemia Treatment Stop: 03/26/22 22:07 Heparin Sodium/Dextrose (Heparin Sodium/Dextrose) 25,000 units in 500 mls @ 32 mls/hr IV .[id number] [facility]; Protocol Stop: 03/26/22 21:29 Last Titration: 02/25/22 18:59 Dose: 1,600 units/hr, 32 mls/hr Promethazine HCl 12.5 mg/ (Sodium Chloride) 50.5 mls @ 202 mls/hr IV Q6H PRN PRN Reason: Nausea And Vomiting Stop: 03/26/22 22:07 Ceftriaxone Sodium 2,000 mg/ (Dextrose) 70 mls @ 140 mls/hr IV Q24H [facility]; Protocol Stop: 03/07/22 19:59 Last Admin: 02/25/22 20:22 Dose: 140 mls/hr Insulin Aspart (Insulin Aspart Per Unit) 0 units SC [facility] Stop: 03/26/22 22:07 Last Admin: 02/25/22 17:24 Dose: Not Given Insulin Glargine (Lantus Per Unit Charge) 5 units SQ [facility] Stop: 03/26/22 22:07 Last Admin: 02/24/22 22:53 Dose: 5 units Levothyroxine Sodium (Levothyroxine Sodium 137 Mcg Tablet) 137 mcg PO DAILYBB [facility] Stop: 03/27/22 06:29 Last Admin: 02/25/22 10:02 Dose: 137 mcg Lorazepam (Lorazepam 0.5 Mg Tab) 0.5 mg PO TID PRN PRN Reason: Anxiety Stop: 03/26/22 22:07 Magnesium Oxide (Magnesium Oxide 400 Mg Tab) 400 mg PO [facility] Stop: 03/27/22 20:59 Last Admin: 02/25/22 20:06 Dose: 400 mg Metoprolol Succinate (Metoprolol Succ 50mg Ext Rel Tab) 50 mg PO BID [facility] Stop: 03/27/22 06:44 Last Admin: 02/25/22 20:07 Dose: 50 mg Miscellaneous (Carbohydrates For Hypoglycemia ) 15 - 30 gm PO UD PRN PRN Reason: Hypoglycemia Protocol Stop: 03/26/22 22:07 Tramadol HCl (Tramadol Hcl 50 Mg Tablet) 25 - 50 mg PO Q4H PRN PRN Reason: Pain Stop: 03/26/22 22:07 Vitamin B Complex (Vitamin B Complex Tab) 1 tab PO HS [facility] Stop: 03/27/22 20:59 Last Admin: 02/25/22 20:07 Dose: 1 tab
--- NOTE | 2022-02-25 09:49 | Cardiology Consultation ---
Date of Consultation February 25, 2022 Assessment & Plan (1) Atrial flutter with rapid ventricular response: (2) Lyme disease: (3) Elevated troponin: Plan Lyme disease with possible neurological manifestations, ? carditis (mildly elevated high sensitivity troponin I, atrial flutter), and ? acrodermatitis atrophicans. No cardiomyopathy or congestive heart failure. Agree with utilization of Ceftriaxone 2 g IV, likely for 14 to 28 days (Infectious Disease consultation pending). Patient notably previously unable to tolerate doxycycline. Atrial flutter with a rapid ventricular response. ? Incidental finding versus secondary to mild myopericarditis. LV function low normal. No pericardial fluid on resting echocardiography. Agree with cautious titration of metoprolol for rate control. Continue IV heparin. Eventual transition to a NOAC for at least short term (4-6 weeks) recommended, as discussed. Elevated high sensitivity troponin I. EKG without acute changes. Patient without overt ACS symptoms. Echocardiogram this morning reveals normal LV systolic function without wall motion abnormality. Patient does have multiple risk factors. Down the road, once all of the above has been corrected, would consider outpatient two day Lexiscan nuclear stress testing. Further recommendations pending the above, evaluation by Dr. Shankar, patient's ongoing hospitalization. Supervising Physician Co-Signing Physician Notes Supervising Physician Attestation: I have personally performed a history and physical examination on the patient. I agree with the physician senior court office assistant's findings and plan as documented with the following additions. Subjective: Patient without acute distress, ongoing atrial fibrillation/flutter with mildly elevated ventricular rate noted in the low 100s. Exam: Cardiovascular tachycardic, no murmurs, no edema Data: Lyme IgG, IgM screen positive Assessment and Plan: Atrial fibrillation/atrial flutter with elevated ventricular rate, associated symptoms of difficulty catching breath Low normal LVEF, 50 to 55% Apparent acute Lyme, several weeks removed from what was in retrospect and erythema migrans rash -Continue metoprolol for rate control, heparin for stroke prophylaxis until her course is more clear. -Agree with DECLAN Shankar DO History of Present Illness Reason for Consultation: Atrial flutter Requesting Physician: Eduin Attending Physician: Adam History of Present Illness Ms. 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 Denny, evaluation of atrial flutter. At the end of December the patient developed a fever up to 102.7 F. Two days later she awoke with some left axilla tenderness and noticed a bull's-eye rash in the left anterior axilla and left upper chest area. She was evaluated at [facility] on January 14, 2022 and was prescribed cephalexin 500 mg twice per day x10 days for acute pharyngitis and cellulitis of the left axilla. She was not prescribed doxycycline due to past intolerance, previously trying doxycycline x2 for rosacea, developing symptomatic PSVT on both occasions (first episode converted following vagal maneuvers, second required adenosine). Lyme testing was obtained and returned negative. Thereafter she developed what she describes as random migrating neurological symptoms -transient intermittent numbness and tingling in the left side of the lips and transient myalgias and arthralgias (jaw discomfort, transient right elbow pain, left elbow pain, shoulder or neck discomfort, knee pain). She notes that her skin was less sensitive. Patient was seen on the weekend clinic, January 16, 2022, with multiple round red circles all over her body felt to represent pityriasis rosea or some other viral exanthem. On February 08, 2022 the patient presented to the ER due to significant palpitations. EKG at that time revealed atrial fibrillation/flutter. Patient notes receiving 10 mg of IV Cardizem with spontaneous conversion to sinus bradycardia. On discharge from the ER the patient was advised to decrease her dose of metoprolol from 25 mg/day to 12.5 mg/day due to bradycardia in the 40s. She was not discharged on aspirin or anticoagulation. Since that time she has continued to feel fatigued. She denies exertional chest pain or discomfort. She notes presenting to the ER on February 24, 2022 due to a change in her breathing, not particularly short of breath. No pleuritic chest pain. No cough, chest congestion, orthopnea, PND, or increased peripheral edema. Patient notes history of sleep apnea, faithfully utilizing CPAP at 9 to 12 cm of water. No dizziness or lightheadedness. No near syncope or syncope. Past Medical and Surgical History SVT Dyslipidemia Hypothyroidism Type 2 diabetes mellitus Obesity Obstructive sleep apnea, CPAP therapy Adjustment disorder with depressed mood Anemia History of skin cancer, basal cell External hemorrhoids Vitamin D deficiency Status post laparotomy D&C Cystocele repair Total abdominal hysterectomy with LSO and right cystectomy Family History: Father has chronic atrial fibrillation, significant sleep apnea, untreated. Mother approximately 3 years ago with a ruptured cerebral AVM. Brother is alive without known cardiac issues. Social History. Patient is a recently reformed smoker. She started smoking at the age of 18, quitting for 10 years, resuming at the age of 39. She quit smoking on January 29, 2022. Social alcohol only. No illegal drug use. Patient is a Respiratory Therapist at [employer] Complete review of systems is otherwise as stated above, negative, noncontributory. Allergies Allergy/AdvReac Type Severity Reaction Status Date / Time tomato Allergy itching Verified 02/24/22 22:17 doxycycline AdvReac Intermediate Itchiness Verified 02/24/22 19:14 egg AdvReac nausea & Verified 02/24/22 19:16 vomiting Home Medications Medication Instructions Recorded Confirmed Type Magnesium Malate Tab 425 mg PO DAILY 02/24/22 02/24/22 History acetaminophen 500 mg tablet 500 - 1,000 mg PO Q6H PRN Pain 02/24/22 02/24/22 History (Tylenol Extra Strength) cholecalciferol (vitamin D3) 125 125 mcg PO DAILY 02/24/22 02/24/22 History mcg (5,000 unit) tablet (Vitamin D3) levothyroxine 137 mcg tablet 137 mcg PO DAILY 02/24/22 02/24/22 History (Euthyrox) metoprolol succinate 25 mg 25 mg PO DAILY 02/24/22 02/24/22 History tablet,extended release 24 hr vitamin B complex 1 tab PO DAILY 02/24/22 02/24/22 History Patient History Social History Smoking Status: Former smoker Tobacco Type: Cigarettes Smoking End Date: January 29; Hx Alcohol Use: Yes Hx Substance Use: No Preferred Language: Slovak Communication Ability: Effective Security Director Required: No Beliefs That Will Affect Care: None Current Living Situation: Family Feels Safe at Home: No Assistive Devices: CPAP and Glasses Physical Exam Physical Exam: General: A&Ox3. NAD. HENT: Normocephalic. Atraumatic. Eyes: PER. Conjunctiva pink, sclera clear. Neck: No carotid bruits. No JVD. Heart: Irregularly irregular at 110 bpm. No murmur. No rub. Lungs: Diminished at the bases however clear to auscultation. Abdomen: +BS. Soft. Nontender. No masses or organomegaly. Extremities: Stasis changes. No clubbing. No cyanosis. Limited neurological examination is without focal deficits. Pulses: Posterior tibial=2/4. Results & Data ([facility]) Vital Signs (Past 12 Hours) Vital Signs Temp Pulse Pulse Resp BP BP Pulse Ox 02/25/22 08:32 36.9 C 103 H 16 132/101 H 97 02/25/22 07:13 02/25/22 07:13 36.9 C 117 H 20 129/84 97 02/25/22 04:27 116 H 14 93 02/25/22 03:30 117 H 13 93 02/25/22 03:20 94 H 16 94 02/25/22 03:10 108 H 14 94 02/25/22 03:00 108 H 21 94 02/25/22 02:50 108 H 16 94 02/25/22 02:40 108 H 16 94 02/25/22 02:30 117 H 15 93 02/25/22 02:20 117 H 18 94 02/25/22 02:10 116 H 22 100 02/25/22 02:00 117 H 13 93 02/25/22 01:59 18 02/25/22 01:50 117 H 27 H 95 02/25/22 01:40 93 H 27 H 96 02/25/22 01:30 100 H 24 96 02/25/22 01:20 108 H 23 96 02/25/22 01:10 108 H 3 L 95 02/25/22 01:00 117 H 6 L 95 02/25/22 00:50 117 H 10 L 94 02/25/22 00:40 108 H 24 95 02/25/22 00:30 118 H 25 H 95 02/25/22 00:20 108 H 30 H 95 02/25/22 00:10 119 H 11 L 02/25/22 00:00 119 H 14 02/24/22 23:50 108 H 6 L 02/24/22 23:40 110 H 14 02/24/22 23:30 120 H 20 02/24/22 23:20 124 H 16 02/24/22 23:14 124 H 15 02/24/22 22:50 119 H 18 97 02/24/22 22:40 118 H 19 95 02/24/22 22:30 118 H 22 95 02/24/22 22:30 125/75 02/24/22 22:20 119 H 16 97 02/24/22 22:10 120 H 21 97 02/24/22 22:00 111 H 25 H 02/24/22 22:00 139/84 02/24/22 21:50 121 H 13 99 02/24/22 21:40 121 H 16 02/24/22 22:08 Pulse Ox O2 Del Method O2 Del Method FiO2 02/25/22 08:32 Room Air 02/25/22 07:13 Room Air 02/25/22 07:13 02/25/22 04:27 21 02/25/22 03:30 02/25/22 03:20 02/25/22 03:10 02/25/22 03:00 02/25/22 02:50 02/25/22 02:40 02/25/22 02:30 02/25/22 02:20 02/25/22 02:10 02/25/22 02:00 02/25/22 01:59 Nasal CPAP 02/25/22 01:50 02/25/22 01:40 02/25/22 01:30 02/25/22 01:20 02/25/22 01:10 02/25/22 01:00 02/25/22 00:50 02/25/22 00:40 02/25/22 00:30 02/25/22 00:20 02/25/22 00:10 02/25/22 00:00 02/24/22 23:50 02/24/22 23:40 02/24/22 23:30 02/24/22 23:20 02/24/22 23:14 02/24/22 22:50 02/24/22 22:40 02/24/22 22:30 02/24/22 22:30 02/24/22 22:20 02/24/22 22:10 02/24/22 22:00 02/24/22 22:00 02/24/22 21:50 02/24/22 21:40 02/24/22 22:08 97 Room Air Laboratory Results Cardiac Enzymes 02/24/22 02/24/22 02/24/22 Range/Units 16:10 16:10 21:07 AST 19 (13-39) U/L Troponin I High Sens 219.3 H* 288.0 H* D (0-14) pg/ml Coagulation 02/24/22 02/25/22 Range/Units 16:10 04:42 APTT 26.8 26.8 (21.0-31.0) Seconds CBC 02/24/22 02/25/22 Range/Units 16:10 04:42 WBC 8.38 9.24 (4.8-10.8) K/ul RBC 4.01 4.32 (3.93-5.22) M/uL Hgb 11.0 L 11.6 L (12.0-16.0) g/dl Hct 35.1 37.7 (34.1-44.9) % Plt Count 369 402 H (130-400) K/uL Neut # (Auto) 5.85 6.09 (1.4-6.5) K/uL Lymph # (Auto) 1.95 2.51 (1.2-3.4) K/uL [place] # (Auto) 0.32 0.35 (0.24-0.82) K/uL Eos # (Auto) 0.14 0.16 (0-0.50) K/uL Baso # (Auto) 0.07 0.08 (0-0.2) K/uL Comprehensive Metabolic Panel 02/24/22 02/25/22 Range/Units 16:10 04:42 Sodium 137 137 (136-145) mmol/L Potassium 3.9 4.2 (3.5-5.1) mmol/L Chloride 102 103 (98-107) mmol/L Carbon Dioxide 29 27 (21-32) mmol/L BUN 22 18 (6-23) mg/dl Creatinine 1.12 0.82 D (0.6-1.2) mg/dl Glucose 144 H 149 H (70-99(Fasting)) mg/dl Calcium 9.2 9.0 (8.5-10.1) mg/dl AST 19 (13-39) U/L ALT 25 (7-52) U/L Alkaline Phosphatase 65 (34-104) U/L Total Protein 7.4 (6.0-8.3) gm/dl Albumin 3.7 (3.4-5.0) gm/dl Intake and Output 02/24/22 02/25/22 02/25/22 22:59 06:59 14:59 Intake Total 70 / 219.667 149.667 / 219.667 Balance 70 / 219.667 149.667 / 219.667 Intake: IV 70 / 219.667 149.667 / 219.667 Heparin Sodium/Dextrose 25,000 149.667 / 149.667 units In 500 ml @ 1,000 UNITS/ HR 20 mls/hr IV .Q24H [facility] Rx#: [id number] cefTRIAXone SODIUM 2,000 mg In 70 / 70 70 ml @ 140 mls/hr IV NOW [facility] Rx#:[id number] Other: Weight 135.2 kg Weight Measurement Method Chair Scale Patient Weight 02/26/22 06:59 Weight 135.2 kg Diagnostic Findings Head CT on February 24, 2022 showed no acute intracranial findings EKG on presentation revealed atrial fibrillation/flutter with a ventricular rate of 121 bpm. February 25, 2022 TTE Interpretation Summary ([facility], Dr. Shankar): Study is technically adequate. Atrial flutter with ventricular rates in the range of 90 to 117 bpm present during echocardiogram. No regional wall motion abnormalities noted. Left ventricular systolic function is low normal. Left ventricular ejection fraction 50 to 55%. Normal size left atrium. No pericardial effusion. No significant valvular pathology.
[2022-02-25] MEDS: LEVOTHYROXINE SODIUM 137 MCG TABLET PO SCH (10:02)
[2022-02-25] MEDS: METOPROLOL SUCC 50MG EXT REL TAB PO SCH ×2 (10:02→20:07)
[2022-02-25] MEDS ORDERED: MAGNESIUM OXIDE 400 MG TAB PO SCH (11:30)
--- NOTE | 2022-02-25 13:06 | XRay Report ---
XR chest 1V portable CLINICAL HISTORY: sob. COMPARISON STUDY: 03/25/2017 TECHNIQUE: 1 view of the chest FINDINGS: Single frontal view of the chest demonstrates the heart size to be at the upper limits of normal to m ildly enlarged. The lungs are clear of alveolar opacities. There is no evidence for pleural effusion. There is no evidence for vascular congestion. There is no acute osseous pathology. IMPRESSION: 1. No acute cardiopulmonary disease. ACT 112: Negative or not required by law. Electronically signed by: Yazan Pizarro M.D. 02/25/2022 1:05 PM
[2022-02-25 13:14] LABS: Partial Thromboplastin Time 27.4 Seconds (21.0-31.0)
[2022-02-25] MEDS ORDERED: Nursing to Pharmacy Communication SCH (14:30)
[2022-02-25] MEDS ORDERED: HEPARIN SOD (PORCINE) 1000 UNIT/ML IV ONE ×2 (15:30→23:45)
[2022-02-25] MEDS: MAGNESIUM OXIDE 400 MG TAB PO SCH (20:06)
[2022-02-25] MEDS: VITAMIN B COMPLEX TAB PO SCH (20:07)
[2022-02-25] MEDS: cefTRIAXone SODIUM 2,000 MG in DEXTROSE 5% 50 ML IV SCH (20:22)
[2022-02-25] MEDS: LANTUS PER UNIT CHARGE SQ SCH (20:43)
[2022-02-25] MEDS: HEPARIN SODIUM/DEXTROSE 25,000 UNITS/500 ML BAG IV SCH ×2 (21:54→23:57)
[2022-02-25 22:15] LABS: Partial Thromboplastin Ratio 1.1; Partial Thromboplastin Time 29.8 Seconds (21.0-31.0)
[2022-02-26] MEDS: LEVOTHYROXINE SODIUM 137 MCG TABLET PO SCH (05:48)
--- NOTE | 2022-02-26 05:56 | Electrocardiogram Report ---
Test Reason : Blood Pressure : / mmHG Vent. Rate : 121 BPM Atrial Rate : 241 BPM P-R Int : 000 ms QRS Dur : 122 ms QT Int : 326 ms P-R-T Axes : 254 037 -28 degrees QTc Int : 462 ms Poor data quality, interpretation may be adversely affected Age and gender specific ECG analysis Atrial flutter with variable A-V block Non-specific intra-ventricular conduction delay Abnormal ECG When compared with ECG of 25-MAR-2017 19:35, Atrial flutter has replaced Sinus rhythm Confirmed by Kevin Mcneill ([id number]) on 02/26/2022 5:55:51 AM Referred By: Confirmed By:Kevin Mcneill
[2022-02-26 06:22] LABS: Hematocrit (blood only) 36.6 % (34.1-44.9); Hemoglobin 11.3 g/dl (12.0-16.0); Mean Corpuscular Hemoglobin 26.8 pg (25.0-34.0); Mean Corpuscular Hgb Conc 30.9 g/dL (32.0-36.0); Mean Corpuscular Volume 86.9 fL (80.0-100.0); Mean Platelet Volume 9.3 fL (9.4-12.3); Platelet Count 383 K/uL (130-400); RDW Coefficient of Variation 14.4 % (11.5-14.5); RDW Standard Deviation 45.7 fL (36.4-46.3); Red Blood Count 4.21 M/uL (3.93-5.22); White Blood Count 7.89 K/ul (4.8-10.8)
[2022-02-26 06:35] LABS: Partial Thromboplastin Ratio 1.5; Partial Thromboplastin Time 40.1 Seconds (21.0-31.0)
[2022-02-26 07:31] LABS: BUN Creatinine Ratio 22.8 (10-20); Calcium 9.3 mg/dl (8.5-10.1); Creatinine Clr Calc Pharmacy 117.4 ml/min; Est GFR (African American) 96.3 ml/min; Est GFR (Non-African American) 83.1 ml/min; Potassium 4.4 mmol/L (3.5-5.1)
[2022-02-26 07:40] LABS: Estimated Average Glucose 180 mg/dl; Hemoglobin A1C 7.9 % (4.5-5.6)
[2022-02-26] MEDS: METOPROLOL SUCC 50MG EXT REL TAB PO SCH ×2 (08:15→20:04)
[2022-02-26] MEDS: INSULIN ASPART PER UNIT SC SCH ×4 (09:06→20:06)
--- NOTE | 2022-02-26 11:12 | Cardiology Progress Note ---
Date of Service February 26, 2022 Assessment & Plan (1) Atrial flutter with rapid ventricular response: (2) Lyme disease: (3) Elevated troponin: Plan Lyme disease with possible neurological manifestations and carditis (mildly elevated high sensitivity troponin I, atrial flutter). No cardiomyopathy or congestive heart failure. Agree with utilization of Ceftriaxone 2 g IV, for 21 days as per ID advice. Patient notably previously unable to tolerate doxycycline. Atrial flutter with a rapid ventricular response. ? Incidental finding versus secondary to mild myopericarditis. LV function low normal. No pericardial fluid on resting echocardiography. Rates acceptably controlled at rest, up to 130 bpm with activity. Continue metoprolol as prescribed for now. Continue IV heparin, eventually transitioning to Eliquis. Elevated high sensitivity troponin I. EKG without acute changes. Patient without overt ACS symptoms. Echocardiogram with normal LV systolic function without wall motion abnormality. Patient does have multiple risk factors. Down the road, once all of the above has been corrected, recommend outpatient two day Lexiscan nuclear stress testing. Admission and Anticipated Discharge Date Admission Date: February 24, 2022 Supervising Physician Co-Signing Physician Notes Supervising Physician Attestation: I have personally performed a history and physical examination on the patient. I agree with the physician real estate executive assistant's findings and plan as documented with the following additions. Subjective: Patient without acute complaint. She feels as though her paresthesias have trended toward improvement. She is sitting up watching a program on her tablet. She remains in atrial fibrillation/flutter with ventricular rates in the 70s to 90s at rest, up to 120 with minimal exertion. Exam: Pulmonary lungs clear to auscultation Cardiovascular: Tachycardic, no murmurs, chronic venous stasis changes of lower legs without edema Assessment and Plan: As above Proceed with trial of IV diltiazem for further rate control. Heparin for stroke prophylaxis. Once PICC line placed, consider transitioning to Eliquis. Harjit Shankar, DO Subjective Patient seen and examined. Chart, medications, and telemetry reviewed. Telemetry: Atrial flutter. Heart rates while at rest have been in the 70's to low 100's, up to 130 bpm with activity. Patient recalled being away of an elevated/irregular heart rate since Tuesday night. Today, she feeling better than yesterday. She is less fatigued. Her complexion has improved. The neurologic issues as well as the myalgias and arthralgia have definitely improved from admission. No chest pain. No unusual shortness of breath. No orthopnea, PND, or peripheral edema. No dizziness or near syncope. Physical Exam Physical Exam: General: A&Ox3. NAD. HENT: Normocephalic. Atraumatic. Eyes: PER. Conjunctiva pink, sclera clear. Neck: No carotid bruits. No JVD. Heart: Irregularly irregular at 80 bpm. No murmur. No rub. Lungs: Diminished at the bases however clear to auscultation. Abdomen: +BS. Extremities: Stasis changes. No clubbing. No cyanosis. Limited neurological examination is without focal deficits. Results & Data ([facility]) Vital Signs (Past 12 Hours) Vital Signs Temp Pulse Resp BP Pulse Ox O2 Del Method 02/26/22 08:01 36.6 C 125 H 18 109/74 98 Room Air 02/26/22 03:46 36.6 C 95 H 18 111/72 96 CPAP 02/25/22 23:41 36.5 C 90 20 114/74 97 CPAP Laboratory Results Coagulation 02/25/22 02/25/22 02/26/22 Range/Units 12:48 21:54 05:52 APTT 27.4 29.8 40.1 H (21.0-31.0) Seconds CBC 02/26/22 Range/Units 05:52 WBC 7.89 (4.8-10.8) K/ul RBC 4.21 (3.93-5.22) M/uL Hgb 11.3 L (12.0-16.0) g/dl Hct 36.6 (34.1-44.9) % Plt Count 383 (130-400) K/uL Comprehensive Metabolic Panel 02/26/22 Range/Units 05:52 Sodium 137 (136-145) mmol/L Potassium 4.4 (3.5-5.1) mmol/L Chloride 102 (98-107) mmol/L Carbon Dioxide 29 (21-32) mmol/L BUN 18 (6-23) mg/dl Creatinine 0.79 (0.6-1.2) mg/dl Glucose 158 H (70-99(Fasting)) mg/dl Calcium 9.3 (8.5-10.1) mg/dl Intake and Output 02/25/22 02/26/22 02/26/22 22:59 06:59 14:59 Intake Total 1011.333 / 1346.267 324.267 / 1346.267 10.667 / 10.667 Balance 1011.333 / 1346.267 324.267 / 1346.267 10.667 / 10.667 Intake: IV 420.333 / 755.267 324.267 / 755.267 10.667 / 10.667 Heparin Sodium/Dextrose 25,000 350.333 / 685.267 324.267 / 685.267 10.667 / 10.667 units In 500 ml @ 1,900 UNITS/ HR 38 mls/hr IV .[id number] [facility] Rx #:[id number] cefTRIAXone SODIUM 2,000 mg In 70 / 70 Dextrose 5% 50 ml @ 140 mls/hr IV Q24H [facility] Rx#:[id number] Oral 591 / 591 Other: Other Intake Source Sips # Unmeasured Voids 1 Weight 133.8 kg Weight Measurement Method Built in [facility]
[2022-02-26] MEDS: HEPARIN SODIUM/DEXTROSE 25,000 UNITS/500 ML BAG IV SCH ×2 (12:55→19:16)
[2022-02-26 13:19] LABS: Partial Thromboplastin Ratio 1.3; Partial Thromboplastin Time 36.9 Seconds (21.0-31.0)
[2022-02-26] MEDS ORDERED: STAT IV Infusion **Titration per Protocol STA (14:32)
[2022-02-26] MEDS ORDERED: dilTIAZem HCl 5 MG/ML 5 ML VIAL IV STA (14:34)
[2022-02-26] MEDS ORDERED: dilTIAZem HCL 125 MG in DEXTROSE 5% 100 ML IV SCH (14:45)
--- NOTE | 2022-02-26 15:26 | Hospitalist Progress Note ---
Date of Service February 26, 2022 Assessment & Plan (1) Atrial flutter with rapid ventricular response: Plan: Recently seen at outpatient ER with this as a new finding in the last couple of weeks. Placed on metoprolol which has been continued. Difficult to achieve th erapeutic heparin level. Started on apixaban prior to bolus this afternoon. Normal recent TSH. Possible Lyme infection contributing? Started on diltiazem drip for additional rate control. Monitor on telemetry. (2) Elevated troponin: Plan: Echo without abnormal wall motion and normal V function. No concern for ACS and she is doing well. (3) Lyme disease: Plan: Unable to tolerate doxycycline in the past. Seen by ID who recommends ceftriaxone for 28 days US guided IV placed today Clinically improving. Plan DM2 diet-controlled, suboptimal control as of recent hemoglobin A1c of 8.19 January 2022 hyperlipidemia, currently not on medications as per patient preference hypothyroidism, TSH slight elevated, stable. Cont synthroid at home dose New onset anemia, patient denies overt source of bleed, had recently quit smoking two months ago. Previously had some elevated H/H likely related to smoking. This is stable at 11.3 CAMERON on CPAP past tobacco abuse Heparin for DVT proph Full Code Dispo-pending improvement in heart rate and clearance by Cardiology. Faiza Medina DO [facility] Hospitalist Admission and Anticipated Discharge Date Admission Date: February 24, 2022 Subjective 56 yo F with Lyme and afib wtih RVR Patient reports no issues with breathing and no chest pains. Palpitations have improved and she reports her heart rate trend which was corroborated on telemetry review. Heart rate still in the low 100s. She has been up and moving around the floor with ease. We discussed anticoagulation options. Her insurance does not cover apixaban but we do have a drug coupon versus Coumadin. She chose the apixaban. Improved pain sensations that are still slightly present. Review of Systems Review of Systems: all systems were reviewed and negative except as indicated above. Physical Exam Physical Exam: CONSTITUTIONAL: obese, vitals as above, generally well- appearing, NAD EYES: normal conjunctivae, no scleral icterus ENT: external ear and nose normal, MMM NECK: trachea midline RESPIRATORY: clear to auscultation bilaterally, no crackles, rales or wheezes, normal respiratory effort CARDIOVASCULAR: irregular rate and irregular rhythm, S1 and 2 heard without murmurs, gallops or rubs, no JVD, no peripheral edema CHEST: inspection of chest was normal GASTROINTESTINAL: soft, nontender, ND, no guarding MUSCULOSKELETAL: strength 5/5 throughout, head is normocephalic and atraumatic, neck supple, normal palpation of chest wall without tenderness SKIN: warm and dry NEUROLOGIC: CN 2-12 grossly intact, no sensory deficit, normal cognition, normal speech, no tremor PSYCHIATRIC: alert cooperative and oriented to person, place and time. Euthymic mood, makes good eye contact, language grossly intact, recent and remote memory grossly intact. Results & Data Results & Data ([facility]) Vital Signs (Past 12 Hours) Vital Signs Temp Pulse Resp BP Pulse Ox O2 Del Method 02/26/22 08:01 36.6 C 125 H 18 109/74 98 Room Air 02/26/22 03:46 36.6 C 95 H 18 111/72 96 CPAP Laboratory Results Short CBC 02/26/22 Range/Units 05:52 WBC 7.89 (4.8-10.8) K/ul Hgb 11.3 L (12.0-16.0) g/dl Hct 36.6 (34.1-44.9) % Plt Count 383 (130-400) K/uL BMP 02/26/22 05:52 Sodium 137 Potassium 4.4 Chloride 102 Carbon Dioxide 29 BUN 18 Creatinine 0.79 Glucose 158 H Calcium 9.3 Medications Administered Current Inpatient Medications Acetaminophen (Acetaminophen 325 Mg Tab) 650 mg PO Q4H PRN PRN Reason: Pain or Fever Stop: 03/26/22 22:07 Last Admin: 02/26/22 06:38 Dose: 650 mg Dextrose (Dextrose 50% 50 Ml Syringe) 25 - 50 ml IV UD PRN; Protocol PRN Reason: Hypoglycemia Protocol Stop: 03/26/22 22:07 Glucagon (Glucagon For Inj 1 Mg Vial) 1 mg SQ UD PRN; Protocol PRN Reason: Hypoglycemia Protocol Stop: 03/26/22 22:07 Glucose (Glucose 40% Gel 15 Gm Tube) 15 - 30 gm PO UD PRN; Protocol PRN Reason: Hypoglycemia Protocol Stop: 03/26/22 22:07 Glucose (Glucose 10 Tab/Tube) 4 - 8 tab PO UD PRN; Protocol PRN Reason: Hypoglycemia Treatment Stop: 03/26/22 22:07 Heparin Sodium/Dextrose (Heparin Sodium/Dextrose) 25,000 units in 500 mls @ 40 mls/hr IV .[id number] [facility]; Protocol Stop: 03/26/22 21:29 Last Admin: 02/26/22 12:55 Dose: 2,000 units/hr, 40 mls/hr Promethazine HCl 12.5 mg/ (Sodium Chloride) 50.5 mls @ 202 mls/hr IV Q6H PRN PRN Reason: Nausea And Vomiting Stop: 03/26/22 22:07 Ceftriaxone Sodium 2,000 mg/ (Dextrose) 70 mls @ 140 mls/hr IV Q24H [facility]; Protocol Stop: 03/07/22 19:59 Last Infusion: 02/25/22 20:52 Dose: Infused Diltiazem HCl 125 mg/ Dextrose 125 mls @ 5 mls/hr IV .Q24H [facility]; Protocol Stop: 03/28/22 14:44 Insulin Aspart (Insulin Aspart Per Unit) 0 units SC ACHS [facility] Stop: 03/26/22 22:07 Last Admin: 02/26/22 12:18 Dose: Not Given Levothyroxine Sodium (Levothyroxine Sodium 137 Mcg Tablet) 137 mcg PO DAILYBB [facility] Stop: 03/27/22 06:29 Last Admin: 02/26/22 05:48 Dose: 137 mcg Lorazepam (Lorazepam 0.5 Mg Tab) 0.5 mg PO TID PRN PRN Reason: Anxiety Stop: 03/26/22 22:07 Magnesium Oxide (Magnesium Oxide 400 Mg Tab) 400 mg PO [facility] Stop: 03/27/22 20:59 Last Admin: 02/25/22 20:06 Dose: 400 mg Metoprolol Succinate (Metoprolol Succ 50mg Ext Rel Tab) 50 mg PO BID [facility] Stop: 03/27/22 06:44 Last Admin: 02/26/22 08:15 Dose: 50 mg Miscellaneous (Carbohydrates For Hypoglycemia ) 15 - 30 gm PO UD PRN PRN Reason: Hypoglycemia Protocol Stop: 03/26/22 22:07 Tramadol HCl (Tramadol Hcl 50 Mg Tablet) 25 - 50 mg PO Q4H PRN PRN Reason: Pain Stop: 03/26/22 22:07 Vitamin B Complex (Vitamin B Complex Tab) 1 tab PO [facility] Stop: 03/27/22 20:59 Last Admin: 02/25/22 20:07 Dose: 1 tab
[2022-02-26] MEDS ORDERED: APIXABAN 5 MG TABLET PO SCH (16:15)
[2022-02-26] MEDS ORDERED: HEPARIN IV BOLUS 4,000 UNITS in SYRINGE 0 ML IV ONE (16:15)
[2022-02-26] MEDS: MAGNESIUM OXIDE 400 MG TAB PO SCH (20:05)
[2022-02-26] MEDS: VITAMIN B COMPLEX TAB PO SCH (20:05)
[2022-02-26] MEDS: cefTRIAXone SODIUM 2,000 MG in DEXTROSE 5% 50 ML IV SCH (20:07)
[2022-02-26] MEDS ORDERED: Nursing to Pharmacy Communication SCH (21:00)
[2022-02-27] MEDS ORDERED: SODIUM CHLORIDE 0.9% 1000ML 1,000 ML IV ONE (03:28)
[2022-02-27 04:26] LABS: Basophils # (auto) 0.07 K/uL (0-0.2); Basophils % (auto) 0.8 %; Eosinophils # (auto) 0.22 K/uL (0-0.50); Eosinophils % (auto) 2.7 %; Hematocrit (blood only) 39.7 % (34.1-44.9); Hemoglobin 12.4 g/dl (12.0-16.0); Immature Granulocytes # (auto) 0.04 K/uL (0.00-0.02); Immature Granulocytes % (auto) 0.5 %; Lymphocytes # (auto) 2.43 K/uL (1.2-3.4); Lymphocytes % (auto) 29.4 %; Mean Corpuscular Hemoglobin 26.7 pg (25.0-34.0); Mean Corpuscular Hgb Conc 31.2 g/dL (32.0-36.0); Mean Corpuscular Volume 85.6 fL (80.0-100.0); Monocytes # (auto) 0.49 K/uL (0.24-0.82); Monocytes % (auto) 5.9 %; Neutrophils # (auto) 5.02 K/uL (1.4-6.5); Neutrophils % (auto) 60.7 %; Platelet Count 410 K/uL (130-400); RDW Coefficient of Variation 14.4 % (11.5-14.5); RDW Standard Deviation 44.4 fL (36.4-46.3); Red Blood Count 4.64 M/uL (3.93-5.22); White Blood Count 8.27 K/ul (4.8-10.8)
[2022-02-27 04:49] LABS: BUN Creatinine Ratio 26.2 (10-20); Calcium 9.5 mg/dl (8.5-10.1); Creatinine Clr Calc Pharmacy 110.4 ml/min; Est GFR (African American) 89.4 ml/min; Est GFR (Non-African American) 77.2 ml/min; Potassium 4.3 mmol/L (3.5-5.1)
[2022-02-27] MEDS: LEVOTHYROXINE SODIUM 137 MCG TABLET PO SCH (05:52)
[2022-02-27] MEDS ORDERED: APIXABAN 5 MG TABLET PO SCH ×2 (06:00→18:00)
[2022-02-27] MEDS: METOPROLOL SUCC 50MG EXT REL TAB PO SCH ×2 (08:34→20:07)
[2022-02-27] MEDS: INSULIN ASPART PER UNIT SC SCH ×4 (08:50→20:09)
--- NOTE | 2022-02-27 10:49 | Cardiology Progress Note ---
Date of Service February 27, 2022 Assessment & Plan (1) Atrial flutter with rapid ventricular response: (2) Elevated troponin: (3) Acute Lyme disease: Plan 56-year-old female admitted with acute Lyme disease, possible neurologic manifestations endocarditis (mildly elevated high-sensitivity troponin). Paroxysmal atrial flutter possibly related to acute Lyme's infection. Recommend continued rate control strategy at this time. Discontinue intravenous diltiazem. Continue metoprolol succinate 50 mg twice daily. Patient transition to Eliquis. Reducing dose to 5 mg twice daily. Cardioversion may be considered after 1-2 weeks of intravenous antibiotic therapy. I am doubtful that a cardioversion would be successful at this time. Close outpatient cardiology follow-up in 1 week. Admission and Anticipated Discharge Date Admission Date: February 24, 2022 Subjective Patient seen examined the bedside. Prescribed intravenous diltiazem infusion yesterday. Heart rate ranging from 60-90s beats per minute. Diltiazem infusion placed on hold overnight due to borderline hypotension and heart rates into the 50s. Currently her heart rate is in the 60s at rest, trending up to 110s with activity. Metoprolol titrated from 25 mg daily, to 50 mg twice daily on admission. Review of Systems Review of Systems: All systems reviewed & are unremarkable except as noted in Subjective Physical Exam Constitutional: + obese Respiratory: no respiratory distress, no labored breathing and no retractions Cardiovascular: Rate/Rhythm: + irregularly irregular Heart Sounds: normal S1 and normal S2; no murmur Vessels: no JVD Extremities: no edema Gastrointestinal (Abdomen): Inspection/Auscultation: abdomen normal to inspection and normal bowel sounds; abdomen not distended Percus donald/Palpation: abdomen soft; abdomen nontender, no guarding and abdomen not rigid Neurologic: CN's II-XI intact bilaterally and moves all extremities; no focal motor deficits Motor/Sensory: no tremor Psychiatric: A+Ox3, euthymic affect Results & Data ([facility]) Vital Signs (Past 12 Hours) Vital Signs Temp Pulse Pulse Resp BP Pulse Ox O2 Del Method 02/27/22 07:00 36.4 C L 72 19 107/75 95 Room Air 02/27/22 05:52 64 106/68 02/27/22 02:56 57 L 13 96 02/27/22 02:41 36.7 C 65 18 96/56 L 96 Nasal CPAP 02/26/22 23:22 36.6 C 58 L 18 102/58 L 97 Nasal CPAP
--- NOTE | 2022-02-27 12:05 | Electrocardiogram Report ---
Test Reason : Blood Pressure : / mmHG Vent. Rate : 068 BPM Atrial Rate : 234 BPM P-R Int : 000 ms QRS Dur : 102 ms QT Int : 412 ms P-R-T Axes : -86 060 060 degrees QTc Int : 438 ms Atrial flutter with variable A-V block Abnormal ECG When compared with ECG of 24-FEB-2022 15:42, Vent. rate has decreased BY [address] less depressed in Inferior leads Non-specific change in ST segment in Lateral leads T wave inversion no longer evident in Inferior leads Nonspecific T wave abnormality no longer evident in Lateral leads Confirmed by Dakota Macias ([id number]) on 02/27/2022 12:04:51 PM Referred By: REFERRED SELF Confirmed By:Dakota Macias
--- NOTE | 2022-02-27 16:38 | Hospitalist Progress Note ---
Date of Service February 27, 2022 Assessment & Plan (1) Atrial flutter with rapid ventricular response: Plan: Recently seen at outpatient ER with this as a new finding in the last couple of weeks. Placed on metoprolol which has been continued. Difficult to achieve th erapeutic heparin level. Started on apixaban. Normal recent TSH. Possible Lyme infection contributing? Started on diltiazem drip for additional rate control. Additional changes per cardiology. Monitor on telemetry. 02/27: she is clinically improved. (2) Elevated troponin: Plan: Echo without abnormal wall motion and normal V function. No concern for ACS and she is doing well. (3) Lyme disease: Plan: Unable to tolerate doxycycline in the past. Seen by ID who recommends ceftriaxone for 28 days US guided IV placed today-script given to case management nurse who is setting up home health Clinically improving. Plan DM2 diet-controlled, suboptimal control as of recent hemoglobin A1c of 8.19 January 2022 hyperlipidemia, currently not on medications as per patient preference hypothyroidism, TSH slight elevated, stable. Cont synthroid at home dose New onset anemia, patient denies overt source of bleed, had recently quit smoking two months ago. Previously had some elevated H/H likely related to smoking. This is stable at 11.3 CAMERON on CPAP past tobacco abuse Heparin for DVT proph Full Code Dispo-pending improvement in heart rate and clearance by Cardiology. Faiza Medina DO [facility] Hospitalist Admission and Anticipated Discharge Date Admission Date: February 24, 2022 Subjective 56 yo F with Lyme and afib wtih RVR Patient reports no issues with breathing and no chest pains. HR improved on diltiazem drip which was held overnight 2/2 hypotension. Fluids were given. HR leighton again >110 and diltiazem was restarted. Remains in atrial flutter today Doing well-concerned about leaky gut so will add probiotics HIV consent signed and discussed HIV and hepatitis testing. Review of Systems Review of Systems: all systems were reviewed and negative except as indicated above. Physical Exam Physical Exam: CONSTITUTIONAL: obese, vitals as above, generally well- appearing, NAD EYES: normal conjunctivae, no scleral icterus ENT: external ear and nose normal, MMM NECK: trachea midline RESPIRATORY: clear to auscultation bilaterally, no crackles, rales or wheezes, normal respiratory effort CARDIOVASCULAR: irregular rate and irregular rhythm, S1 and 2 heard without murmurs, gallops or rubs, no JVD, no peripheral edema CHEST: inspection of chest was normal GASTROINTESTINAL: soft, nontender, ND, no guarding MUSCULOSKELETAL: strength 5/5 throughout, head is normocephalic and atraumatic, neck supple, normal palpation of chest wall without tenderness SKIN: warm and dry NEUROLOGIC: CN 2-12 grossly intact, no sensory deficit, normal cognition, normal speech, no tremor PSYCHIATRIC: alert cooperative and oriented to person, place and time. Euthymic mood, makes good eye contact, language grossly intact, recent and remote memory grossly intact. Results & Data Results & Data ([facility]) Vital Signs (Past 12 Hours) Vital Signs Temp Pulse Resp BP Pulse Ox O2 Del Method 02/27/22 14:57 36.7 C 95 H 20 140/90 96 Room Air 02/27/22 11:34 36.7 C 71 20 122/77 97 Room Air 02/27/22 07:00 36.4 C L 72 19 107/75 95 Room Air 02/27/22 05:52 64 106/68 Laboratory Results Short CBC 02/27/22 Range/Units 04:19 WBC 8.27 (4.8-10.8) K/ul Hgb 12.4 (12.0-16.0) g/dl Hct 39.7 (34.1-44.9) % Plt Count 410 H (130-400) K/uL BMP 02/27/22 04:19 Sodium 136 Potassium 4.3 Chloride 102 Carbon Dioxide 26 BUN 22 Creatinine 0.84 Glucose 145 H Calcium 9.5 Medications Administered Current Inpatient Medications Acetaminophen (Acetaminophen 325 Mg Tab) 650 mg PO Q4H PRN PRN Reason: Pain or Fever Stop: 03/26/22 22:07 Last Admin: 02/26/22 06:38 Dose: 650 mg Apixaban (Apixaban 5 Mg Tablet) 5 mg PO BID@0600,1800 MAURO Stop: 03/29/22 17:59 Dextrose (Dextrose 50% 50 Ml Syringe) 25 - 50 ml IV UD PRN; Protocol PRN Reason: Hypoglycemia Protocol Stop: 03/26/22 22:07 Glucagon (Glucagon For Inj 1 Mg Vial) 1 mg SQ UD PRN; Protocol PRN Reason: Hypoglycemia Protocol Stop: 03/26/22 22:07 Glucose (Glucose 40% Gel 15 Gm Tube) 15 - 30 gm PO UD PRN; Protocol PRN Reason: Hypoglycemia Protocol Stop: 03/26/22 22:07 Glucose (Glucose 10 Tab/Tube) 4 - 8 tab PO UD PRN; Protocol PRN Reason: Hypoglycemia Treatment Stop: 03/26/22 22:07 Promethazine HCl 12.5 mg/ (Sodium Chloride) 50.5 mls @ 202 mls/hr IV Q6H PRN PRN Reason: Nausea And Vomiting Stop: 03/26/22 22:07 Ceftriaxone Sodium 2,000 mg/ (Dextrose) 70 mls @ 140 mls/hr IV Q24H MAURO; Protocol Stop: 03/07/22 19:59 Last Infusion: 02/26/22 20:37 Dose: Infused Sodium Chloride (Nss 1000ml) 1,000 mls @ 75 mls/hr IV .[id number] ONE Stop: 02/27/22 16:47 Last Admin: 02/27/22 03:54 Dose: 75 mls/hr Insulin Aspart (Insulin Aspart Per Unit) 0 units SC ACHS [facility] Stop: 03/26/22 22:07 Last Admin: 02/27/22 12:54 Dose: Not Given Levothyroxine Sodium (Levothyroxine Sodium 137 Mcg Tablet) 137 mcg PO DAILYBB [facility] Stop: 03/27/22 06:29 Last Admin: 02/27/22 05:52 Dose: 137 mcg Lorazepam (Lorazepam 0.5 Mg Tab) 0.5 mg PO TID PRN PRN Reason: Anxiety Stop: 03/26/22 22:07 Magnesium Oxide (Magnesium Oxide 400 Mg Tab) 400 mg PO HS [facility] Stop: 03/27/22 20:59 Last Admin: 02/26/22 20:05 Dose: 400 mg Metoprolol Succinate (Metoprolol Succ 50mg Ext Rel Tab) 50 mg PO BID [facility] Stop: 03/27/22 06:44 Last Admin: 02/27/22 08:34 Dose: 50 mg Miscellaneous (Carbohydrates For Hypoglycemia ) 15 - 30 gm PO UD PRN PRN Reason: Hypoglycemia Protocol Stop: 03/26/22 22:07 Saccharomyces Boulardii (Saccharomyces Boulardii 250 Mg Cap) 250 mg PO DAILY [facility] Stop: 03/29/22 13:29 Tramadol HCl (Tramadol Hcl 50 Mg Tablet) 25 - 50 mg PO Q4H PRN PRN Reason: Pain Stop: 03/26/22 22:07 Vitamin B Complex (Vitamin B Complex Tab) 1 tab PO HS [facility] Stop: 03/27/22 20:59 Last Admin: 02/26/22 20:05 Dose: 1 tab
[2022-02-27] MEDS: APIXABAN 5 MG TABLET PO SCH (17:12)
[2022-02-27] MEDS: SACCHAROMYCES BOULARDII 250 MG CAP PO SCH (17:12)
[2022-02-27] MEDS: MAGNESIUM OXIDE 400 MG TAB PO SCH (20:07)
[2022-02-27] MEDS: VITAMIN B COMPLEX TAB PO SCH (20:07)
[2022-02-27] MEDS: cefTRIAXone SODIUM 2,000 MG in DEXTROSE 5% 50 ML IV SCH (20:07)
[2022-02-28] MEDS: LEVOTHYROXINE SODIUM 137 MCG TABLET PO SCH (05:12)
[2022-02-28] MEDS: APIXABAN 5 MG TABLET PO SCH ×2 (05:12→17:16)
[2022-02-28 08:21] LABS: Hematocrit (blood only) 39.1 % (34.1-44.9); Hemoglobin 12.5 g/dl (12.0-16.0); Mean Corpuscular Volume 84.4 fL (80.0-100.0); Mean Platelet Volume 9.3 fL (9.4-12.3); Platelet Count 442 K/uL (130-400); RDW Coefficient of Variation 14.5 % (11.5-14.5); RDW Standard Deviation 44.2 fL (36.4-46.3); Red Blood Count 4.63 M/uL (3.93-5.22); White Blood Count 8.73 K/ul (4.8-10.8)
[2022-02-28] MEDS: INSULIN ASPART PER UNIT SC SCH ×4 (08:29→20:23)
[2022-02-28] MEDS: METOPROLOL SUCC 50MG EXT REL TAB PO SCH ×3 (08:35→20:05)
[2022-02-28] MEDS: SACCHAROMYCES BOULARDII 250 MG CAP PO SCH (08:36)
[2022-02-28 08:42] LABS: BUN Creatinine Ratio 24.7 (10-20); Calcium 9.7 mg/dl (8.5-10.1); Creatinine Clr Calc Pharmacy 108.5 ml/min; Est GFR (African American) 88.2 ml/min; Est GFR (Non-African American) 76.1 ml/min; Potassium 4.3 mmol/L (3.5-5.1)
[2022-02-28] MEDS: MAGNESIUM OXIDE 400 MG TAB PO SCH ×2 (10:18→20:06)
[2022-02-28] MEDS ORDERED: dilTIAZem HCL 30 MG TAB PO ONE (10:31)
--- NOTE | 2022-02-28 10:34 | Cardiology Progress Note ---
Date of Service February 28, 2022 Assessment & Plan (1) Atrial flutter with rapid ventricular response: (2) Elevated troponin: (3) Acute Lyme disease: Plan 56-year-old female admitted with acute Lyme disease, possible neurologic manifestations endocarditis (mildly elevated high-sensitivity troponin). Paroxysmal atrial flutter possibly related to acute Lyme's infection. Recommend continued rate control strategy at this time. Intravenous diltiazem discontinued 02/27/2022. Continue metoprolol succinate 50 mg twice daily and Eliquis. Add oral diltiazem 30 mg 3 times daily to improve rate control. Cardioversion may be considered after 1-2 weeks of intravenous antibiotic thera py. I am doubtful that a cardioversion would be successful at this time. Close outpatient cardiology follow-up in 1 week. Admission and Anticipated Discharge Date Admission Date: February 24, 2022 Subjective Patient seen and examined at the bedside. Heart rate elevated overnight. Averaging 80 up to 120 bpm. Notes occasional chest fluttering. No lightheadedness or dizziness. Denies chest pain or unusual shortness of breath. No fevers overnight. Review of Systems Review of Systems: All systems reviewed & are unremarkable except as noted in Subjective Physical Exam Constitutional: + obese Respiratory: no respiratory distress, no labored breathing and no retractions Cardiovascular: Rate/Rhythm: + tachycardic and + irregularly irregular Heart Sounds: normal S1 and normal S2; no murmur Vessels: no JVD Extremities: no edema Gastrointestinal (Abdomen): Inspection/Auscultation: abdomen normal to inspection and normal bowel sounds; abdomen not distended Percussion/Palpation: abdomen soft; abdomen nontender, no guarding and abdomen not rigid Neurologic: CN's II-XI intact bilaterally and moves all extremities; no focal motor deficits Motor/Sensory: no tremor Psychiatric: A+Ox3, euthymic affect Results & Data ([facility]) Vital Signs (Past 12 Hours) Vital Signs Temp Pulse Pulse Resp BP Pulse Ox O2 Del Method 02/28/22 07:00 87 02/28/22 07:08 36.4 C L 97 H 19 90/63 L 97 Room Air 02/28/22 05:00 36.4 C L 122 H 18 126/76 94 Room Air 02/28/22 03:12 65 15 97 02/27/22 23:10 36.4 C L 65 18 106/66 97 CPAP
--- NOTE | 2022-02-28 13:40 | Hospitalist Progress Note ---
Date of Service February 28, 2022 Assessment & Plan (1) Atrial flutter with rapid ventricular response: Plan: HR still elevated. Low dose diltiazem added by cardiology in addition to metoprolol 50mg BID. Continues on Eliquis. Cont to monitor on telemetry to monitor the effects of this change. (2) Elevated troponin: Plan: Echo without abnormal wall motion and normal LV function. No concern for ACS and she is doing well. (3) Lyme disease: Plan: Unable to tolerate doxycycline in the past. Seen by ID who recommends ceftriaxone for 28 days US guided IV placed 02/27-script given to case management nurse who is setting up home health Clinically improving. (4) DMII (diabetes mellitus, type 2): Plan: Uncontrolled since last fall. Highly recommend medical therapy at this point while she continues to work on diet and exercise for weight loss, etc. As she reports no insurance coverage for a GLP-1 agonist, the next best thing for her after metformin, which she cannot tolerate, would be an SGLT2I like Jardiance. I priced this with her pharmacy and it is also not covered. We discussed starting glipizide and she was agreeable for the time being. Plan hyperlipidemia, currently not on medications as per patient preference hypothyroidism, TSH slight elevated, stable. Cont synthroid at home dose New onset anemia, patient denies overt source of bleed, had recently quit smoking two months ago. Previously had some elevated H/H likely related to smoking. This is stable CAMERON on CPAP past tobacco abuse-remains quit Heparin for DVT proph Full Code Dispo-pending improvement in heart rate and clearance by Cardiology. Faiza Medina DO [facility] Hospitalist Admission and Anticipated Discharge Date Admission Date: February 24, 2022 Subjective 56 yo F with Lyme and afib wtih RVR Patient reports no issues with breathing and no chest pains. Still in flutter on the monitor Doing well clinically except reports more fatigue today Denies chest pain/SOB Review of Systems Review of Systems: all systems were reviewed and negative except as indicated above. Physical Exam Physical Exam: CONSTITUTIONAL: obese, vitals as above, generally well- appearing, NAD EYES: normal conjunctivae, no scleral icterus ENT: external ear and nose normal, MMM NECK: trachea midline RESPIRATORY: clear to auscultation bilaterally, no crackles, rales or wheezes, normal respiratory effort CARDIOVASCULAR: irregular rate and irregular rhythm, S1 and 2 heard without murmurs, gallops or rubs, no JVD, no peripheral edema CHEST: inspection of chest was normal GASTROINTESTINAL: soft, nontender, ND, no guarding MUSCULOSKELETAL: strength 5/5 throughout, head is normocephalic and atraumatic, neck supple, normal palpation of chest wall without tenderness SKIN: warm and dry NEUROLOGIC: CN 2-12 grossly intact, no sensory deficit, normal cognition, normal speech, no tremor PSYCHIATRIC: alert cooperative and oriented to person, place and time. Euthymic mood, makes good eye contact, language grossly intact, recent and remote memory grossly intact. Results & Data Results & Data ([facility]) Vital Signs (Past 12 Hours) Vital Signs Temp Pulse Pulse Resp BP Pulse Ox O2 Del Method 02/28/22 08:00 Room Air 02/28/22 11:14 36.5 C 123 H 20 118/79 97 Room Air 02/28/22 07:00 87 02/28/22 07:08 36.4 C L 97 H 19 90/63 L 97 Room Air 02/28/22 05:00 36.4 C L 122 H 18 126/76 94 Room Air 02/28/22 03:12 65 15 97 Laboratory Results Short CBC 02/28/22 Range/Units 07:49 WBC 8.73 (4.8-10.8) K/ul Hgb 12.5 (12.0-16.0) g/dl Hct 39.1 (34.1-44.9) % Plt Count 442 H (130-400) K/uL BMP 02/28/22 07:49 Sodium 136 Potassium 4.3 Chloride 100 Carbon Dioxide 29 BUN 21 Creatinine 0.85 Glucose 148 H Calcium 9.7 Medications Administered Current Inpatient Medications Acetaminophen (Acetaminophen 325 Mg Tab) 650 mg PO Q4H PRN PRN Reason: Pain or Fever Stop: 03/26/22 22:07 Last Admin: 02/26/22 06:38 Dose: 650 mg Apixaban (Apixaban 5 Mg Tablet) 5 mg PO BID@0600,1800 MAUR[facility] Stop: 03/29/22 17:59 Last Admin: 02/28/22 05:12 Dose: 5 mg Dextrose (Dextrose 50% 50 Ml Syringe) 25 - 50 ml IV UD PRN; Protocol PRN Reason: Hypoglycemia Protocol Stop: 03/26/22 22:07 Diltiazem HCl (Diltiazem Hcl 30 Mg Tab) 30 mg PO TID [facility] Stop: 03/30/22 13:59 Glucagon (Glucagon For Inj 1 Mg Vial) 1 mg SQ UD PRN; Protocol PRN Reason: Hypoglycemia Protocol Stop: 03/26/22 22:07 Glucose (Glucose 40% Gel 15 Gm Tube) 15 - 30 gm PO UD PRN; Protocol PRN Reason: Hypoglycemia Protocol Stop: 03/26/22 22:07 Glucose (Glucose 10 Tab/Tube) 4 - 8 tab PO UD PRN; Protocol PRN Reason: Hypoglycemia Treatment Stop: 03/26/22 22:07 Promethazine HCl 12.5 mg/ (Sodium Chloride) 50.5 mls @ 202 mls/hr IV Q6H PRN PRN Reason: Nausea And Vomiting Stop: 03/26/22 22:07 Ceftriaxone Sodium 2,000 mg/ (Dextrose) 70 mls @ 140 mls/hr IV 1600 ONE; Protocol Stop: 02/28/22 16:29 Ceftriaxone Sodium 2,000 mg/ (Dextrose) 70 mls @ 140 mls/hr IV DAILY@1200 MAURO; Protocol Stop: 03/10/22 11:59 Insulin Aspart (Insulin Aspart Per Unit) 0 units SC ACHS [facility] Stop: 03/26/22 22:07 Last Admin: 02/28/22 11:43 Dose: Not Given Levothyroxine Sodium (Levothyroxine Sodium 137 Mcg Tablet) 137 mcg PO DAILYBB [facility] Stop: 03/27/22 06:29 Last Admin: 02/28/22 05:12 Dose: 137 mcg Lorazepam (Lorazepam 0.5 Mg Tab) 0.5 mg PO TID PRN PRN Reason: Anxiety Stop: 03/26/22 22:07 Magnesium Oxide (Magnesium Oxide 400 Mg Tab) 400 mg PO BID [facility] Stop: 03/30/22 08:59 Last Admin: 02/28/22 10:18 Dose: 400 mg Metoprolol Succinate (Metoprolol Succ 50mg Ext Rel Tab) 50 mg PO BID [facility] Stop: 03/27/22 06:44 Last Admin: 02/28/22 08:51 Dose: 50 mg Miscellaneous (Carbohydrates For Hypoglycemia ) 15 - 30 gm PO UD PRN PRN Reason: Hypoglycemia Protocol Stop: 03/26/22 22:07 Saccharomyces Boulardii (Saccharomyces Boulardii 250 Mg Cap) 250 mg PO DAILY [facility] Stop: 03/29/22 13:29 Last Admin: 02/28/22 08:36 Dose: 250 mg Tramadol HCl (Tramadol Hcl 50 Mg Tablet) 25 - 50 mg PO Q4H PRN PRN Reason: Pain Stop: 03/26/22 22:07 Vitamin B Complex (Vitamin B Complex Tab) 1 tab PO [facility] Stop: 03/27/22 20:59 Last Admin: 02/27/22 20:07 Dose: 1 tab
[2022-02-28] MEDS: dilTIAZem HCL 30 MG TAB PO SCH ×2 (14:17→20:04)
[2022-02-28] MEDS ORDERED: cefTRIAXone SODIUM 2,000 MG in DEXTROSE 5% 50 ML IV ONE (16:00)
[2022-02-28] MEDS: VITAMIN B COMPLEX TAB PO SCH (20:05)
[2022-03-01] MEDS: LEVOTHYROXINE SODIUM 137 MCG TABLET PO SCH (05:30)
[2022-03-01] MEDS: APIXABAN 5 MG TABLET PO SCH ×2 (05:30→17:49)
[2022-03-01] MEDS: INSULIN ASPART PER UNIT SC SCH ×4 (07:58→21:03)
[2022-03-01] MEDS: MAGNESIUM OXIDE 400 MG TAB PO SCH ×2 (08:36→21:12)
[2022-03-01] MEDS: SACCHAROMYCES BOULARDII 250 MG CAP PO SCH (08:36)
[2022-03-01] MEDS: dilTIAZem HCL 30 MG TAB PO SCH (08:36)
[2022-03-01] MEDS: METOPROLOL SUCC 50MG EXT REL TAB PO SCH ×2 (08:36→21:13)
[2022-03-01] MEDS ORDERED: dilTIAZem HCL 30 MG TAB PO ONE (09:30)
--- NOTE | 2022-03-01 10:14 | Cardiology Progress Note ---
Date of Service March 01, 2022 Assessment & Plan (1) Atrial flutter with rapid ventricular response: (2) Elevated troponin: (3) Acute Lyme disease: Plan 56-year-old female admitted with acute Lyme disease, possible neurologic manifestations endocarditis (mildly elevated high-sensitivity troponin). Paroxysmal atrial flutter possibly related to acute Lyme's infection. Recommend continued rate control strategy at this time. Intravenous diltiazem discontinued 02/27/2022. Low-dose oral diltiazem added 02/28/2022 with mild improvement. Recommend titration of oral diltiazem to 60 mg 3 times daily. Continue metoprolol succinate 50 mg twice daily and Eliquis. Cardioversion may be considered after 1-2 weeks of intravenous antibiotic therapy. I am doubtful that a cardioversion would be successful at this time. Close outpatient cardiology follow-up in 1 week. Admission and Anticipated Discharge Date Admission Date: February 24, 2022 Subjective Patient seen examined at the bedside. Heart rate remains elevated on telemetry. Denies chest pain or shortness of breath. Low-dose diltiazem added yesterday. Patient tolerating medication. Review of Systems Review of Systems: All systems reviewed & are unremarkable except as noted in Subjective Physical Exam Constitutional: + obese Respiratory: no respiratory distress, no labored breathing and no retractions Cardiovascular: Rate/Rhythm: + tachycardic and + irregularly irregular Heart Sounds: normal S1 and normal S2; no murmur Vessels: no JVD Extremities: no edema Gastrointestinal (Abdomen): Inspection/Auscultation: abdomen normal to inspection and normal bowel sounds; abdomen not distended Percussion/Palpation: abdomen soft; abdomen nontender, no guarding and abdomen not rigid Neurologic: CN's II-XI intact bilaterally and moves all extremities; no focal motor deficits Motor/Sensory: no tremor Psychiatric: A+Ox3, euthymic affect Results & Data ([facility]) Vital Signs (Past 12 Hours) Vital Signs Temp Pulse Pulse Resp BP Pulse Ox O2 Del Method 03/01/22 09:55 Room Air 03/01/22 07:18 116 H 03/01/22 07:05 36.4 C L 98 H 14 101/66 98 Room Air 03/01/22 04:02 36.3 C L 91 H 18 102/70 97 Room Air, CPAP 03/01/22 02:07 16 96 03/01/22 00:00 103 H 03/01/22 00:00 36.4 C L 83 18 105/69 96 CPAP
[2022-03-01] MEDS: cefTRIAXone SODIUM 2,000 MG in DEXTROSE 5% 50 ML IV SCH (11:53)
[2022-03-01] MEDS: dilTIAZem HCl 60 MG TAB PO SCH ×2 (14:37→21:11)
--- NOTE | 2022-03-01 15:21 | Discharge Summary ---
Date of Service March 01, 2022 Admission HPI Per Admitting Provider History obtained from patient and records. Medical history significant for PAF, PSVT, DM2 diet-controlled, hyperlipidemia, hypothyroidism, CAMERON on CPAP, past tobacco abuse. 6 weeks ago patient noted a bull's-eye lesion on the left arm with fever. Possible tick bite. Outpatient Lyme screen negative. Outpatient Keflex Rx for LUE cellulitis from PCPs office. Patient later on noted transient truncal lesions. 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 Persistent fatigue last 6 weeks. 2 weeks ago, patient noted palpitations. Patient consulted [facility] ER. A. fib resolved with diltiazem as per documentation. Patient discharged on Toprol-XL 25 mg daily. Heart rate as low as 40 at home from time to time. PCP decreased Toprol-XL dose to 12.5 mg daily on follow-up visit. Patient later on noted transient neurologic symptoms over the last few weeks. Lip numbness, tingling finger numbness/sensation, RLE numbness compared to LLE as per patient. No headache symptoms. Patient breathing not usual at work today. Denies chest pain. Not actually short of breath as per patient. Leg swelling actually better than a few weeks ago. No unusual cough symptoms. Patient noted to be in atrial flutter upon arrival at the ER. IV Cardizem administered at the ER. Ceftriaxone administered for Lyme disease. 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 Principal Diagnosis Atrial flutter with rapid ventricular response Elevated troponin Lyme disease DMII Discharge Exam CONSTITUTIONAL: obese, vitals as above, generally well-appearing, NAD EYES: normal conjunctivae, no scleral icterus ENT: external ear and nose normal, MMM NECK: trachea midline RESPIRATORY: clear to auscultation bilaterally, no crackles, rales or wheezes, normal respiratory effort CARDIOVASCULAR: irregular rate and irregular rhythm, S1 and 2 heard without murmurs, gallops or rubs, no JVD, no peripheral edema CHEST: inspection of chest was normal GASTROINTESTINAL: soft, nontender, ND, no guarding MUSCULOSKELETAL: strength 5/5 throughout, head is normocephalic and atraumatic, neck supple, normal palpation of chest wall without tenderness SKIN: warm and dry NEUROLOGIC: CN 2-12 grossly intact, no sensory deficit, normal cognition, normal speech, no tremor PSYCHIATRIC: alert cooperative and oriented to person, place and time. Euthymic mood, makes good eye contact, language grossly intact, recent and remote memory grossly intact. Discharge Data Allergies Allergy/AdvReac Type Severity Reaction Status Date / Time tomato Allergy itching Verified 02/24/22 22:17 doxycycline AdvReac Intermediate Itchiness Verified 02/24/22 19:14 egg AdvReac nausea & Verified 02/24/22 19:16 vomiting Consultations 02/24/22 19:10 ED Decision to Admit Stat 02/24/22 20:49 Consult Infectious Diseases Routine 02/24/22 22:08 Consult Cardiology Routine Ordered Studies 02/24/22 20:22 CT head/brain wo con Urgent Hospital Course (1) Atrial flutter with rapid ventricular response: (2) Elevated troponin: (3) Lyme disease: (4) DMII (diabetes mellitus, type 2): Plan 56-year-old female admitted to the hospital for acute Lyme disease and new onset atrial fibrillation with rapid ventricular response. Her beta-antony was increased and IV heparin was started for thromboembolic prophylaxis. Ceftriaxone was started and infectious disease was consulted. They recommend to continue a full 28 days of ceftriaxone. Notably she had an intolerance to doxycycline in the past. An ultrasound-guided IV line was placed for this to continue at home. An echocardiogram was performed on 02/25 with no regional wall motion abnormalities noted and a low ventricular ejection fraction of 50 to 55%. There was no significant valvular pathology. It was difficult to control her rate and she was started on a diltiazem drip in addition to metoprolol. Although her troponin was elevated this was thought secondary to tachycardia and not ACS, as her echo was normal without wall motion abnormalities. While in the hospital her fasting blood sugar was elevated and diabetic therapies were discussed. First-line therapies for her given obesity would be a GLP-1 agonist or SGL 2 inhibitor. Both of these were priced and were cost prohibitive. Therefore we decided on low-dose glipizide. She was given a low dose given the fact she subscribes to a ketogenic diet. At time of discharge she was still atrial fibrillation with her rate controlled. She was discharged in stable condition with close cardiology followup recommended. Total Time Total Time Spent Total Time Spent (In Minutes): 60 Discharge Plan Discharge Items Patient Disposition: Home - Home Health Services Reason For Visit: AFLUTTER, LYME Discharge Diagnosis: Atrial flutter with rapid ventricular response Elevated troponin Lyme disease DMII Condition on Discharge: Good Activity: Resume your previous activity Non-emergency contact: Primary Care Provider Call non-emergency contact if: you have any medication questions, your symptoms worsen and your temperature is above 101.5 Follow-up/Referrals: Trina Resendiz MD [Primary Care Provider] - (Date & Time 03/04/2022 2:00 PM Provider Trina Resendiz MD Department [facility] ) Diet: Carb Consistent or DM2 Addtl Attending Provider Instructions: Please take all medications as instructed on discharge list below. New medications include diltiazem which helps metoprolol (increased) to control your heart rate. Apixaban is a new blood thinner that will reduce your risk of stroke while in this new rhythm. Lastly, you are being given a low dose glipizide, which will treat your elevated blood sugar. Your blood sugar is uncontrolled and medication is being started in addition to continued lifestyle changes you are pursuing. This diabetic medication will need to be titrated to effect by your primary care provider. Please follow up with [facility] Cardiology in one week. It is recommended that you follow-up with your primary care provider in one week to ensure you are still doing well on antibiotic therapy, and all your new medications. It was a pleasure taking care of you! Please call if you have any questions or problems. You can reach a [facility] hospitalist on duty at [facility] 24 hours a day by calling [phone]. Take care of yourself. Faiza Medina, DO [facility] Hospitalist Pending Studies at Discharge: No Stand-Alone Forms: My [facility] [email or web address], Work/School Release Medications and DC Order Prescriptions: New apixaban 5 mg tablet 5 mg PO BID Qty: 60 0RF glipizide 2.5 mg tablet extended release 24hr 2.5 mg PO DAILY Qty: 30 0RF Rx Instructions: take 30 minutes before main meal of the day, once daily metoprolol succinate 50 mg Tablet Extended Release 24 Hr 50 mg PO BID Qty: 60 0RF diltiazem HCl 120 mg capsule,extended release 24hr 120 mg PO QAM Qty: 30 0RF ceftriaxone 2 gram recon soln 2 g IV DAILY Qty: 1 0RF Continued levothyroxine [Euthyrox] 137 mcg tablet 137 mcg PO DAILY acetaminophen [Tylenol Extra Strength] 500 mg Tablet 500 - 1,000 mg PO Q6H PRN (Reason: Pain) vitamin B complex Tablet 1 tab PO DAILY cholecalciferol (vitamin D3) [Vitamin D3] 125 mcg (5,000 unit) Tablet 125 mcg PO DAILY Rx Instructions: WITH VITAMIN K Magnesium Malate Tab 425 mg PO DAILY Discontinued metoprolol succinate 25 mg tablet extended release 24 hr 25 mg PO DAILY Discharge Orders: Discharge Order (Routine); Ordered 03/02/22 Ordered By: Faiza Mederos/Other Patient Handouts: Diabetes Food Shop Meals Prep, Exercise: Why Fitness Matters, Diabetes: Meal Planning, Type 2 Diabetes Admission Data Admit Date/Time: 02/24/22 20:41 Attending Provider: Faiza Medina Admit Provider: Elliott Denny Primary Care Provider: Trina Resendiz Other Providers: Elliott Denny ; Johnson Geller ; Mercedes Butler ; Joaquin Ocasio I. ; Gerardo Liang II ; Keren Montoya ; Fabian Nielsen ; Desean Navarrete ; Estuardo Hoyt ; Harjit Shankar ; Emanuel Sánchez ; Andi Jones ; JosselynRemington mena ; Fabian Andrade ; Kasie Nava ; Neva Riddle ; Heather Blum ; Sujit Garrett ; [facility] Other Interventions: Discharge Summary Assessment (RN) Last Done: 03/02/22 12:26
--- NOTE | 2022-03-01 19:46 | Hospitalist Progress Note ---
Date of Service March 01, 2022 Assessment & Plan (1) Atrial flutter with rapid ventricular response: Plan: HR still elevated. Low dose diltiazem added by cardiology in addition to metoprolol 50mg BID. Continues on Eliquis. Cont to monitor on telemetry to monitor the effects of this change-HR has improved. (2) Elevated troponin: Plan: Echo without abnormal wall motion and normal LV function. No concern for ACS and she is doing well. (3) Lyme disease: Plan: Unable to tolerate doxycycline in the past. Seen by ID who recommends ceftriaxone for 28 days US guided IV placed 02/27-script given to case management nurse who is setting up home health Clinically improving. (4) DMII (diabetes mellitus, type 2): Plan: Uncontrolled since last fall. Highly recommend medical therapy at this point while she continues to work on diet and exercise for weight loss, etc. As she reports no insurance coverage for a GLP-1 agonist, the next best thing for her after metformin, which she cannot tolerate, would be an SGLT2I like Jardiance. I priced this with her pharmacy and it is also not covered. We discussed starting glipizide and she was agreeable for the time being. Inpatient fasting glucose has been above goal in the 140s-160s. Added evening Lantus. Plan hyperlipidemia, currently not on medications as per patient preference hypothyroidism, TSH slight elevated, stable. Cont synthroid at home dose New onset anemia, patient denies overt source of bleed, had recently quit smoking two months ago. Previously had some elevated H/H likely related to smoking. This is stable CAMERON on CPAP past tobacco abuse-remains quit Heparin for DVT proph Full Code Dispo-although HR was improved, we did not have insurance clearance for IV antibiotics which should come through in am. Home in am. [facility] Admission and Anticipated Discharge Date Admission Date: February 24, 2022 Subjective 56 yo F with Lyme and afib wtih RVR Patient reports no issues with breathing and no chest pains. Still in flutter on the monitor Denies chest pain/SOB HR is improved on the diltiazem Review of Systems Review of Systems: all systems were reviewed and negative except as indicated above. Physical Exam Physical Exam: CONSTITUTIONAL: obese, vitals as above, generally well-kiara earing, NAD EYES: normal conjunctivae, no scleral icterus ENT: external ear and nose normal, MMM NECK: trachea midline RESPIRATORY: clear to auscultation bilaterally, no crackles, rales or wheezes, normal respiratory effort CARDIOVASCULAR: irregular rate and irregular rhythm, S1 and 2 heard without murmurs, gallops or rubs, no JVD, no peripheral edema CHEST: inspection of chest was normal GASTROINTESTINAL: soft, nontender, ND, no guarding MUSCULOSKELETAL: strength 5/5 throughout, head is normocephalic and atraumatic, neck supple, normal palpation of chest wall without tenderness SKIN: warm and dry NEUROLOGIC: CN 2-12 grossly intact, no sensory deficit, normal cognition, normal speech, no tremor PSYCHIATRIC: alert cooperative and oriented to person, place and time. Euthymic mood, makes good eye contact, language grossly intact, recent and remote memory grossly intact. Results & Data Results & Data ([facility]) Vital Signs (Past 12 Hours) Vital Signs Temp Pulse Pulse Resp BP Pulse Ox O2 Del Method 03/01/22 19:20 36.7 C 71 18 113/78 95 Room Air 03/01/22 16:00 36.7 C 65 16 127/82 97 Room Air 03/01/22 15:28 64 03/01/22 11:43 36.9 C 73 16 114/80 98 Room Air 03/01/22 09:55 Room Air Medications Administered Current Inpatient Medications Acetaminophen (Acetaminophen 325 Mg Tab) 650 mg PO Q4H PRN PRN Reason: Pain or Fever Stop: 03/26/22 22:07 Last Admin: 02/26/22 06:38 Dose: 650 mg Apixaban (Apixaban 5 Mg Tablet) 5 mg PO BID@0600,1800 [facility] Stop: 03/29/22 17:59 Last Admin: 03/01/22 17:49 Dose: 5 mg Dextrose (Dextrose 50% 50 Ml Syringe) 25 - 50 ml IV UD PRN; Protocol PRN Reason: Hypoglycemia Protocol Stop: 03/26/22 22:07 Diltiazem HCl (Diltiazem Hcl 60 Mg Tab) 60 mg PO TID [facility] Stop: 03/31/22 13:59 Last Admin: 03/01/22 14:37 Dose: 60 mg Glucagon (Glucagon For Inj 1 Mg Vial) 1 mg SQ UD PRN; Protocol PRN Reason: Hypoglycemia Protocol Stop: 03/26/22 22:07 Glucose (Glucose 40% Gel 15 Gm Tube) 15 - 30 gm PO UD PRN; Protocol PRN Reason: Hypoglycemia Protocol Stop: 03/26/22 22:07 Glucose (Glucose 10 Tab/Tube) 4 - 8 tab PO UD PRN; Protocol PRN Reason: Hypoglycemia Treatment Stop: 03/26/22 22:07 Promethazine HCl 12.5 mg/ (Sodium Chloride) 50.5 mls @ 202 mls/hr IV Q6H PRN PRN Reason: Nausea And Vomiting Stop: 03/26/22 22:07 Ceftriaxone Sodium 2,000 mg/ (Dextrose) 70 mls @ 140 mls/hr IV DAILY@1200 [facility]; Protocol Stop: 03/10/22 11:59 Last Infusion: 03/01/22 12:34 Dose: Infused Insulin Aspart (Insulin Aspart Per Unit) 0 units SC ACHS [facility] Stop: 03/26/22 22:07 Last Admin: 03/01/22 16:52 Dose: 2 units Insulin Glargine (Lantus Per Unit Charge) 20 units SQ HS [facility] Stop: 03/31/22 20:59 Levothyroxine Sodium (Levothyroxine Sodium 137 Mcg Tablet) 137 mcg PO DAILYBB [facility] Stop: 03/27/22 06:29 Last Admin: 03/01/22 05:30 Dose: 137 mcg Lorazepam (Lorazepam 0.5 Mg Tab) 0.5 mg PO TID PRN PRN Reason: Anxiety Stop: 03/26/22 22:07 Magnesium Oxide (Magnesium Oxide 400 Mg Tab) 400 mg PO BID [facility] Stop: 03/30/22 08:59 Last Admin: 03/01/22 08:36 Dose: 400 mg Metoprolol Succinate (Metoprolol Succ 50mg Ext Rel Tab) 50 mg PO BID [facility] Stop: 03/27/22 06:44 Last Admin: 03/01/22 08:36 Dose: 50 mg Miscellaneous (Carbohydrates For Hypoglycemia ) 15 - 30 gm PO UD PRN PRN Reason: Hypoglycemia Protocol Stop: 03/26/22 22:07 Saccharomyces Boulardii (Saccharomyces Boulardii 250 Mg Cap) 250 mg PO DAILY [facility] Stop: 03/29/22 13:29 Last Admin: 03/01/22 08:36 Dose: 250 mg Tramadol HCl (Tramadol Hcl 50 Mg Tablet) 25 - 50 mg PO Q4H PRN PRN Reason: Pain Stop: 03/26/22 22:07 Vitamin B Complex (Vitamin B Complex Tab) 1 tab PO HS [facility] Stop: 03/27/22 20:59 Last Admin: 02/28/22 20:05 Dose: 1 tab
[2022-03-01] MEDS ORDERED: LANTUS PER UNIT CHARGE SQ SCH (21:00)
[2022-03-01] MEDS: VITAMIN B COMPLEX TAB PO SCH (21:12)
[2022-03-02 01:53] LABS: 18KDIGG Band REACTIVE; 23KDIGG Band REACTIVE; 23KDIGM Band REACTIVE; 28KDIGG Band NON-REACTIVE; 30KDIGG Band NON-REACTIVE; 39KDIGG Band REACTIVE; 39KDIGM Band REACTIVE; 41KDIGG Band REACTIVE; 41KDIGM Band REACTIVE; 45KDIGG Band NON-REACTIVE; 58KDIGG Band REACTIVE; 66KDIGG Band NON-REACTIVE; 93KDIGG Band REACTIVE; Lyme Antibodies, WB IgG POSITIVE (NEGATIVE); Lyme Antibodies, WB IgM POSITIVE (NEGATIVE)
[2022-03-02] MEDS: LEVOTHYROXINE SODIUM 137 MCG TABLET PO SCH (06:10)
[2022-03-02] MEDS: APIXABAN 5 MG TABLET PO SCH (06:10)
[2022-03-02] MEDS: dilTIAZem HCl 60 MG TAB PO SCH (08:22)
[2022-03-02] MEDS: SACCHAROMYCES BOULARDII 250 MG CAP PO SCH (08:22)
[2022-03-02] MEDS: MAGNESIUM OXIDE 400 MG TAB PO SCH (08:22)
[2022-03-02] MEDS: METOPROLOL SUCC 50MG EXT REL TAB PO SCH (08:22)
[2022-03-02] MEDS: INSULIN ASPART PER UNIT SC SCH ×2 (08:59→11:55)
[2022-03-02 10:36] LABS: HBSAG NON-REACTIVE (NON-REACTIVE); Hepatitis A Antibody IgM NON-REACTIVE (NON-REACTIVE); Hepatitis B Core Antibody IgM NON-REACTIVE (NON-REACTIVE)
[2022-03-02] MEDS: cefTRIAXone SODIUM 2,000 MG in DEXTROSE 5% 50 ML IV SCH (11:40)
== END 2022-03-02 12:57 | disposition home health service (06) | DRG 868 ==
LOC: ED 14:25 → 2S 20:00 → EDINP 20:41 → 2S 02-25 18:22